=== PATIENT | female | born 1995 | race Caucasian/White ===

== ENCOUNTER 2020-11-02 05:12 | Outpatient (CLI) | payer MEDICAID, SELFPAY ==
[2020-11-02 12:32] LABS: Abs Immature Grans 0.04 10^3/uL (0.0-0.06); Absolute Basophil Count 0.01 10^3/uL (0.0-0.2); Absolute Eosinophil Count 0.02 10^3/uL (0.0-0.7); Absolute Lymphocyte Count 1.45 10^3/uL (1.2-3.4); Absolute Neutrophil Count 9.48 10^3/uL (1.2-6.7); Basophils % 0.1; Eosinophils % 0.2; HCT 39.9 % (36.0-46.0); HGB 14.1 g/dL (11.2-15.7); Immature Grans % 0.3; Lymphocytes % 12.3; MCH 31.6 pg (27.0-33.0); MCHC 35.3 % (32.0-36.0); MCV 89.5 fL (80-95); MPV 10.2 fL (8.0-11.0); Monocytes % 6.8; Neutrophils % 80.3; Nucleated RBC 0 %; Platelet Count 252 10^3/uL (130-400); RBC 4.46 10^6/uL (3.93-5.22); RDW 12.4 % (11.7-14.6); RDW-SD 40.7 fL
[2020-11-02 13:28] LABS: TSH (W/Ref FT4) 0.21 uIU/mL (0.36-3.74)
[2020-11-02 13:52] LABS: FREE T4 1.18 ng/dL (0.76-1.46)
[2020-11-02 15:54] LABS: *AMPHETAMINES SCREEN URINE Negative (Negative); *BARBITURATES SCREEN URINE Negative (Negative); *BENZODIAZEPINES SCREEN URINE Negative (Negative); Cannabinoids THC Negative (Negative); Cocaine Screen,Urine Negative (Negative); METHADONE URINE SCREEN Negative (Negative); OPIATES URINE SCREEN Negative (Negative)
[2020-11-02 16:04] LABS: Tricyclic Antidepressants Negative (Negative)
[2020-11-03 09:28] LABS: Hepatitis B Surface Ag Negative (Negative)
[2020-11-03 09:47] LABS: Varicella IgG Antibody Positive (See Note)
[2020-11-03 09:51] LABS: Rubella IgG Ab (UVM) Positive (See Note)
[2020-11-03 09:56] LABS: Hepatitis C Ab w Rflx HCV PCR Negative (Negative)
[2020-11-03 10:20] LABS: HIV-1/2 Ag & Ab Screen Negative (Negative)
[2020-11-03 13:59] LABS: Syphilis Total Ab w/Reflex Nonreactive (Nonreactive)
[2020-11-03 14:06] LABS: Chlamydia Result Negative (Negative); GC Result Negative (Negative)
[2020-11-07 12:24] LABS: Buprenorphine Negative; Norbuprenorphine Negative
== END 2020-11-02 05:32 ==
PROVIDERS: Visit Provider Advanced Practice Midwife
DX: Z34.91 Encounter for supervision of normal pregnancy, unspecified, first trimester (principal); Z11.59 Encounter for screening for other viral diseases; Z11.4 Encounter for screening for human immunodeficiency virus [HIV]; Z01.84 Encounter for antibody response examination; Z11.3 Encounter for screening for infections with a predominantly sexual mode of transmission
CPT/HCPCS: 36415; 80307; 86787; 86803; 86850; 86900; 86901; 87340; 87389; 87491; 87591; 84439; 84443; 85025; 86762; 86780; 87086

== ENCOUNTER 2020-12-28 00:33 | Outpatient (CLI) | payer MEDICAID, SELFPAY ==
--- NOTE | 2020-12-28 06:45 | DI.US_ITS ---
EXAM: US OB 2-3 TRIMESTER CLINICAL HISTORY: Anatomy,Z34.90. TECHNIQUE: Transabdominal obstetrical ultrasound performed. COMPARISON: No exams were available for comparison FINDINGS: Transabdominal obstetrical ultrasound performed. FINDINGS: Number of fetuses: One. position: Vertex. heart rate: 145 bpm. Placental location: Posterior. No evidence of previa. The placenta is low-lying. The placental tip lies 2.6 cm from the internal os. Amniotic fluid index: Amount of fluid is within normal limits. ANATOMICAL SURVEY: Within normal limits. BIOMETRIC DATA: BPD: 4.5cm equals 19 weeks 4 days HC: 16.1cm equals 18 weeks 6 days AC: 13.4cm equals 18 weeks 6 days FL: 2.8cm equals 18 weeks 4 days Cisterna Magna: 2.5 mm Cerebellum: 1.8 cm EFW: 257 grms 67% Composite Age: 19 weeks EDC by US: 05/24/2021 Heart Rate: 145BPM IMPRESSION: 1. Single live intrauterine gestation as above. 2. Low-lying placenta. 3. Normal anatomic survey. DATA REPOSITORY:
== END 2020-12-28 00:34 | disposition home or self-care (01) ==
LOC: DI 00:33
PROVIDERS: PCP Internal Medicine; Visit Provider Obstetrics & Gynecology
DX: O44.42 Low lying placenta NOS or without hemorrhage, second trimester (principal)
CPT/HCPCS: 76805

== ENCOUNTER 2021-01-29 01:25 | Outpatient (CLI) | payer MEDICAID, SELFPAY ==
--- NOTE | 2021-01-29 07:00 | DI.US_ITS ---
EXAM: US OB F/U FACIAL/LVOT/RVOT CLINICAL HISTORY: F/U PLACENTA LOCATION,O44.42. COMPARISON: US US OB 2-3 TRIMESTER from 12/28/2020 TECHNIQUE: Transabdominal obstetrical ultrasound performed. FINDINGS: Sonographic images demonstrate a single intrauterine gestation in breech position.. Placenta: Fundal and left-sided. Placental tip measures 8.5 cm from the internal os. Estimated date of delivery based upon LMP: 29 May 2021 heart rate motion is Dopplered at: 143 bpm. . Amniotic fluid: Amount of fluid is visually within normal limits. IMPRESSION: No evidence of low lying placenta.. DATA REPOSITORY:
== END 2021-01-29 01:45 ==
PROVIDERS: PCP Internal Medicine; Visit Provider Obstetrics & Gynecology
DX: O44.42 Low lying placenta NOS or without hemorrhage, second trimester (principal)
CPT/HCPCS: 76815

== ENCOUNTER 2021-02-27 04:07 | Outpatient (CLI) | payer MEDICAID, SELFPAY ==
[2021-02-27 11:15] LABS: Abs Immature Grans 0.05 10^3/uL (0.0-0.06); Absolute Basophil Count 0.01 10^3/uL (0.0-0.2); Absolute Eosinophil Count 0.03 10^3/uL (0.0-0.7); Absolute Lymphocyte Count 1.16 10^3/uL (1.2-3.4); Absolute Monocyte Count 0.62 10^3/uL (0.1-0.8); Basophils % 0.1; Eosinophils % 0.3; HCT 34.4 % (36.0-46.0); HGB 12.1 g/dL (11.2-15.7); Immature Grans % 0.5; Lymphocytes % 10.6; MCH 33.4 pg (27.0-33.0); MCHC 35.2 % (32.0-36.0); MPV 9.7 fL (8.0-11.0); Monocytes % 5.7; Neutrophils % 82.8; Nucleated RBC 0 %; Platelet Count 231 10^3/uL (130-400); RBC 3.62 10^6/uL (3.93-5.22); RDW 13.5 % (11.7-14.6); RDW-SD 47.4 fL; WBC 10.94 10^3/uL (4.4-10.8)
[2021-02-27 11:18] LABS: Absolute Neutrophil Count 9.06 10^3/uL (1.2-6.7)
[2021-02-27 11:23] LABS: Glucose,1 Hr (Glucola) 102 mg/dL (80-140)
== END 2021-02-27 04:08 | disposition home or self-care (01) ==
LOC: LBO 04:07
PROVIDERS: PCP Internal Medicine; Visit Provider Obstetrics & Gynecology Gynecology
DX: O36.0120 Maternal care for anti-D [Rh] antibodies, second trimester, not applicable or unspecified (principal); Z01.84 Encounter for antibody response examination; Z3A.27 27 weeks gestation of pregnancy
CPT/HCPCS: 36415; 82950; 86850; 90384; 85025

== ENCOUNTER 2021-04-24 18:07 | Outpatient (REF) | payer MEDICAID, SELFPAY ==
[2021-04-24 16:22] LABS: *AMPHETAMINES SCREEN URINE Negative (Negative); *BARBITURATES SCREEN URINE Negative (Negative); *BENZODIAZEPINES SCREEN URINE Negative (Negative); Cannabinoids THC Negative (Negative); Cocaine Screen,Urine Negative (Negative); METHADONE URINE SCREEN Negative (Negative); OPIATES URINE SCREEN Negative (Negative)
[2021-04-24 16:23] LABS: Tricyclic Antidepressants Negative (Negative)
[2021-04-27 14:10] LABS: Buprenorphine Negative ng/mL (Cutoff: 5.0); Norbuprenorphine Negative ng/mL (Cutoff: 2.5)
== END 2021-04-24 18:08 | disposition home or self-care (01) ==
LOC: LBN 18:07
PROVIDERS: Visit Provider Obstetrics & Gynecology Gynecology
DX: Z34.93 Encounter for supervision of normal pregnancy, unspecified, third trimester (principal); Z36.85 Encounter for antenatal screening for Streptococcus B; Z3A.35 35 weeks gestation of pregnancy
CPT/HCPCS: 80307; 87081

== ENCOUNTER 2021-05-29 07:30 | Outpatient (CLI) | payer MEDICAID, SELFPAY ==
[2021-05-29 11:17] VITALS: BP 117/76; PULSE 92; TEMP 37.4
--- NOTE | 2021-05-30 10:53 | W.OBNST ---
Date of service: 05/30/21 Time of Service: 10:54 NST Evaluation Reason for NST Reasons for Nonstress Test: POSTDATES Gestational Age Gestational Age in Weeks and Days: 40 Weeks and 0Days Test and Monitor Explained Test/Monitor Explained: Test Explained and Monitor Explained Vital Signs Blood Pressure: 117/76 Pulse: 92 Temperature: 99.3 F NST Information Date on Monitor: 05/29/21 Time on Monitor: 11:19 Date off Monitor: 05/29/21 NST Interventions: PO Hydration NST Evaluation Patient States Movement: Present FHR Baseline: 1,351 Variability: Moderate 6-25 bpm Accelerations: 15x15 Decelerations: None NST Results: Reactive Note NST Note Note: Reactive category 1 strip for postdates NST Reviewed and Verified by: Lee Ann Vieira
[2021-05-30 10:54] VITALS: BP 117/76; PULSE 92; TEMP 37.4
== END 2021-05-29 12:20 | disposition home or self-care (01) ==
LOC: BCD 07:32 → NUR 11:13
PROVIDERS: Visit Provider Obstetrics & Gynecology
DX: O48.0 Post-term pregnancy (principal); Z3A.40 40 weeks gestation of pregnancy
CPT/HCPCS: 59025

== ENCOUNTER 2021-06-01 08:06 | Outpatient (CLI) | payer MEDICAID, SELFPAY ==
[2021-06-01 13:23] VITALS: BP 137/82; PULSE 90; TEMP 36.5
[2021-06-01 13:25] VITALS: BP 137/82; PULSE 90
[2021-06-04 09:58] VITALS: BP 137/82; PULSE 90; TEMP 36.5
--- NOTE | 2021-06-04 09:58 | W.OBNST ---
Date of service: 06/04/21 Time of Service: 09:58 NST Evaluation Reason for NST Reasons for Nonstress Test: POSTDATES Gestational Age Gestational Age in Weeks and Days: 40 Weeks and 3Days Test and Monitor Explained Test/Monitor Explained: Test Explained, Monitor Explained and Patient Verbalized Understanding Vital Signs Blood Pressure: 137/82 Pulse: 90 Temperature: 97.7 F Urine Results Urine Protein: Negative Urine Ketones: Negative Urine Glucose: Negative Urine Blood: Positive NST Information Date on Monitor: 06/01/21 Time on Monitor: 13:26 Date off Monitor: 06/01/21 Time off Monitor: 14:00 Total Time on Monitor: 34 NST Interventions: PO Hydration Contraction Frequency: 2-4 min; NST Evaluation Patient States Movement: Present FHR Baseline: 135 Variability: Moderate 6-25 bpm Accelerations: 15x15 Decelerations: None NST Results: Reactive Note NST Note Note: Patient will return in approximately 2 hours to assess cervical change. NST Reviewed and Verified by: Debora Mejia
== END 2021-06-01 14:10 | disposition home or self-care (01) ==
LOC: BCD 08:10 → OBS 13:16
PROVIDERS: Visit Provider Obstetrics & Gynecology Gynecology
DX: O48.0 Post-term pregnancy (principal); Z3A.40 40 weeks gestation of pregnancy
CPT/HCPCS: 59025

== ENCOUNTER 2021-06-01 16:00 | Inpatient (IN) | payer MEDICAID, SELFPAY ==
[2021-06-01 16:11] VITALS: BP 145/81; PULSE 107; RESP 19; TEMP 37.1; O2SAT 97
--- NOTE | 2021-06-01 16:42 | HPE_ITS ---
Date of service: 06/01/21 Time of Service: 16:54 Assessment and Plan Assessment and plan (1) Rh negative status during : Status: Acute Assessment and plan: Patient had RhoGam during her Qualifiers: Trimester: third trimester Qualified Code(s): O26.893 - Other specified related conditions, third trimester; Z67.91 - Unspecified blood type, Rh negative (2) Positive GBS test: Status: Acute Assessment and plan: We will begin penicillin dosing prior to AROM (3) Active labor at term: Status: Acute Assessment and plan: Appreciable cervical change since her last visit. More uncomfortable. Will admit to the center and begin labor protocol OB-HPI Labor/Delivery History of Present Illness Chief Complaint: Uterine Contractions; Suspected Labor. NEREYDA Calculator Estimated Delivery Date Method Current WG Current Estimate 05/27/21 Ultrasound #1 40w 5d Other Estimates 05/29/21 LMP (Certain) 40w 3d History of Present Expected Delivery Route/Plan FOB/ - Kalyan Rivera md care. Specific Issues/Plan 1. Pt will check if sister had Pre-eclampsia @ iob thus she will glean info and call estrada. al 2. Rh neg, RhoGam @ 28 wks ___02/27/2021- given___ Patient and her to had Covid vaccine. - 35w transverse lie. Head maternal L. 36w Vertex. - GBS +. Pt aware. Review of Systems Narrative: Patient evaluated approximately 2 hours ago on center having strong but irregular contractions. She was instructed to ambulate for 2 hours and return for a repeat sterile vaginal exam. Her cervix has changed and she is more uncomfortable with contractions every 3 to 4 minutes. She will be admitted begin GBS prophylaxis and a vaginal . All systems reviewed & are unremarkable except as noted in HPI and below Constitutional Constitutional: Reports difficulty sleeping and Reports weight gain (Normal for ) Cardiovascular Cardiovascular: Reports system reviewed and no additional complaints, except as documented Respiratory Respiratory: Reports other (Patient reports recent rhinorrhea and sinus fullness. No fever.) Gastrointestinal Gastrointestinal: Denies change in bowel habits Genitourinary Genitourinary: Reports other (Increased vaginal discharge but no spontaneous rupture of membrane) Psychiatric Psychiatric: Reports system reviewed and no additional complaints, except as documented [facility] Medical History (Updated 06/01/21 @ 16:52 by Debora Mejia MD) Low lying placenta nos or without hemorrhage, second trimester Positive GBS test Rh negative status during Surgical History (Updated 11/02/20 @ 11:00 by Javier Brown CNM) S/P appendectomy S/P wisdom tooth extraction Family History (Updated 11/02/20 @ 11:06 by Javier Brown CNM) Father Well adult Mother Well adult Maternal Grandfather Cancer lymphoma ? if hodgkins vs non-hodgkins. al Maternal Grandmother H/O abdominal hysterectomy H/O cardiac pacemaker Paternal Grandmother Hx of halfway use of blood thinners Palsy, Wilkinson's Social History Smoking risk assessment performed?: No History History 2 Para 0 Hx # Term Pregnancies 0 Multiple births 0 Hx # Pregnancies 0 Ectopic pregnancies 0 AB induced 0 Hx Number of Living Children 0 AB spontaneous 1 Meds Allergies and Home Medications Allergies Allergy/AdvReac Type Severity Reaction Status Date / Time No Known Allergies Allergy Verified 05/21/21 14:44 Home Medications Medication Instructions Recorded Confirmed Type prenat.vits,aftab,pug-yggk-mmels 1 tab PO DAILY 05/03/20 01/30/21 History Exam Physical Exam Vital Signs Reviewed: Yes Constitutional Constitutional: no acute distress (Breathing through contractions) Detailed Labor and Delivery Exam Dilation: 2 Effacement (%): 90 station: 0 Cervix position: mid Consistency: soft Potts Score: Cervical Points Exam 0 1 2 3 Dilation Closed 1-2cm 3-4 cm 5-6cm Effacement 0-30% 40-50% 60-70% 80% Consistency Firm Medium Soft Station -3 -2 -1,0 +1,+2 Position Posterior Mid Anterior POTTS Score(Cervical Ripeness Score): 10 Amniotic Membrane Status: Intact Monitor Mode: External Contraction Frequency(min): 2-3 Contraction Duration(sec): 60 Contraction Intensity: Moderate/Strong (Palpated at bedside) Fetus A Heart Rate Baseline: 140 Monitor Accelerations: Present Monitor Decelerations: None Variability: Moderate (6-25 BPM) Presentation: Cephalic Categories: Category I Est. Weight: 3600 lb HEENT Exam HEENT Exam: Normal Neck Exam Neck Exam: Normal Chest/Brest/Axilla Exam Chest Exam: Not Done Breast Exam Breast Exam: Not Done Respiratory Exam Respiratory Exam: Normal Cardiovascular Exam Cardiovascular Exam: Normal Abdominal Exam Abdominal Exam: Normal Rectal Exam Rectal Exam: Not Done Exam Exam: Not Done Extremities Exam Extremities Exam: Normal Back/Spine/Pelvis Exam Back Exam: Normal Pelvis Adequate: Yes Skin Exam Skin Exam: Normal (Acne vulgaris on face) Neurological Exam Neurological Exam: Normal (1+ DTRs patellar) Psychiatric Exam Psychiatric Exam: Normal Results Results Group Beta Strep: Positive Risk Assessment Risk for Shoulder Dystocia Historical/Initial OB: NEGATIVE FOR: Pelvic Abnormality, Pre- BMI>30, Previous Shoulder Dystocia or Previous Macrosomia Counselin11/02/20 @ iob low risk al Risk for Pre-Eclampsia Date Initiated/Initials: 11/02/20a see note above al Yes, if one or more: NEGATIVE FOR: Hx Pre-E/Gest HTN, Chronic HTN, Multiple Gestation, Pre-gestational DM, Renal Disease, Systemic Lupus or APA Syndrome Yes, if 2 or more: POSITIVE FOR: Nulliparity; NEGATIVE FOR: Age>= 35 yrs, >10yr btwn pregnancies, BMI>30, ethinicty, Mother/Sister w/ Pre-E or Previous IUGR Risk for Post- Hemorrhage Initial: NEGATIVE FOR: Multiple Gestation, Previous PPH, Known Clotting Deficiency, Grand Multiparity or Anticoagulation Risks Reviewed Risks Reviewed Upon Admission: Yes
[2021-06-01 17:07] LABS: HCT 38.2 % (36.0-46.0); MPV 10.3 fL (8.0-11.0); Platelet Count 192 10^3/uL (130-400); RBC 3.94 10^6/uL (3.93-5.22); RDW 13.3 % (11.7-14.6); RDW-SD 47.8 fL; WBC 15.33 10^3/uL (4.4-10.8)
[2021-06-01] MEDS: Normal Saline Flush 10 ML SYR IVP ×2 (17:57→22:31)
[2021-06-01] MEDS: Lactated Ringers 1,000 ML 125 ML IV (17:58)
[2021-06-01] MEDS: Penicillin G POT. 5,000,000 UNITS in Normal Saline 100 ML 200 UNITS IVPB (17:59)
[2021-06-01 18:02] VITALS: BP 132/87; PULSE 93; TEMP 36.5
[2021-06-01 18:03] VITALS: BP 132/87; PULSE 93
[2021-06-01 19:44] LABS: Source Nasal/Nares
[2021-06-01 20:41] LABS: COVID-19 PCR Negative (Negative)
[2021-06-01 20:54] VITALS: BP 132/80; PULSE 90; RESP 16; O2SAT 93
--- NOTE | 2021-06-01 21:22 | NUR.NOTE ---
Nursing Note: Heavy meconium fluid on AROM, OB and RN plan to keep pt on continuous EFM at this time.
--- NOTE | 2021-06-01 21:22 | W.PM.OBNL1 ---
Date of service: 06/01/21 Time of Service: 21:22 Pelvic Exam Dilation: 4 Effacement (%): 90 station: 0 Position: OA Cervix Position: mid Consistency: soft Vaginal Exam Presentation: Cephalic Contractions Monitor Mode: Palpation Contraction Frequency(min): 2-4 Contraction Duration(sec): 45 Intensity: Moderate/Strong Fetus A Monitor: Doppler (Prior to AROM. After AROM continuous heart rate monitoring.) Heart Rate Baseline: 140 Presentation: Cephalic Variability: Moderate (6-25 BPM) Categories: Category I FHR Rhythm: Regular Characteristics: Normal Accelerations: Present Decelerations: None and Early (Dissociation with contractions) Recurrence: Intermittent Amniotic Membrane Status: Ruptured (AROM) Amniotic Fluid: Meconium (Thick meconium) Date of Membrane Rupture: 06/01/21 Time of Membrane Rupture: 21:26 Assessment and Plan Assessment and plan (1) Active labor at term: Status: Acute Assessment and plan: Patient feeling moreuncomfortable but tolerating the contractions well with the support of her . (2) Positive GBS test: Status: Acute Assessment and plan: Initial dose of penicillin administered will continue GBS penicillin protocol (3) Meconium in amniotic fluid: Status: Acute Assessment and plan: Will begin continuous heart rate monitoring Objective Abnormal lab results 06/01/21 Range/Units 16:50 WBC 15.33 H (4.4-10.8) 10^3/uL MCV 97.0 H (80-95) fL Temp Pulse Resp BP Pulse Ox 97.7 F 90 16 132/80 93 06/01/21 18:02 06/01/21 20:54 06/01/21 20:54 06/01/21 20:54 06/01/21 20:54 Laboratory Results WBC 15.33 10^3/uL (4.4-10.8) H 06/01/21 16:50 RBC 3.94 10^6/uL (3.93-5.22) 06/01/21 16:50 Hgb 13.0 g/dL (11.2-15.7) 06/01/21 16:50 Hct 38.2 % (36.0-46.0) 06/01/21 16:50 MCV 97.0 fL (80-95) H 06/01/21 16:50 MCH 33.0 pg (27.0-33.0) 06/01/21 16:50 MCHC 34.0 % (32.0-36.0) 06/01/21 16:50 RDW 13.3 % (11.7-14.6) 06/01/21 16:50 Plt Count 192 10^3/uL (130-400) 06/01/21 16:50 MPV 10.3 fL (8.0-11.0) 06/01/21 16:50 COVID-19 Source Nasal/Nares 06/01/21 18:15 SARS-CoV-2 (PCR) Negative (Negative) 06/01/21 18:15 Patient ABO/Rh A Negative 06/01/21 16:50 Antibody Screen NEGATIVE 06/01/21 16:50 Vital Signs Reviewed: Yes Objective Narrative Objective Narrative: After AROM patient was placed on continuous monitoring. Subjective Interval history since last seen: Contractions have become more intense and approximately every 2 minutes. She reports feeling tired. Observed her through several contractions and she tolerates contractions very well. Since her admission she has received 1 dose of penicillin for GBS prophylaxis. Results Hemoglobin/Hematocrit: Hgb 13.0 g/dL (11.2-15.7) 06/01/21 16:50 Hct 38.2 % (36.0-46.0) 06/01/21 16:50 Abnormal Lab Findings: Abnormal Labs 06/01/21 16:50 WBC 15.33 H MCV 97.0 H
[2021-06-01] MEDS: Penicillin G POT. 3,000,000 UNITS in Normal Saline 50 ML 100 UNITS IVPB (22:31)
[2021-06-01 22:38] VITALS: BP 131/81; PULSE 77; RESP 16; TEMP 36.9; O2SAT 96
[2021-06-02] VITALS (59 sets, daily range): BP systolic 111–136; BP diastolic 57–84; PULSE 65–151; RESP 16; TEMP 36.8–37.3; O2SAT 96–100; BMI 30.5
--- NOTE | 2021-06-02 00:30 | W.PM.OBNL1 ---
Date of service: 06/02/21 Time of Service: 00:31 Pelvic Exam Dilation: 4 Effacement (%): 90 station: +2 (Molding present, no caput) Cervix Position: mid Consistency: soft Vaginal Exam Presentation: Cephalic Contractions Monitor Mode: External Contraction Frequency(min): Coupling present Contraction Duration(sec): 40 seconds Intensity: Moderate/Strong Fetus A Monitor: External (US) Heart Rate Baseline: 140 Presentation: Cephalic Variability: Moderate (6-25 BPM) Categories: Category I FHR Rhythm: Regular Characteristics: Normal Accelerations: 15 X 15 Decelerations: Early Recurrence: Recurrent (With each contraction) Amniotic Membrane Status: Ruptured Assessment and Plan Assessment and plan (1) Meconium in amniotic fluid: Status: Acute (2) Active labor at term: Status: Acute Assessment and plan: Cervical changes present. Contractions better tolerated using nitrous oxide. No plan for augmentation at this time. heart rate pattern remains reassuring (3) Positive GBS test: Status: Acute Objective Abnormal lab results 06/01/21 Range/Units 16:50 WBC 15.33 H (4.4-10.8) 10^3/uL MCV 97.0 H (80-95) fL Temp Pulse Resp BP Pulse Ox 98.4 F 65 16 132/67 96 06/02/21 00:28 06/02/21 00:28 06/01/21 22:38 06/02/21 00:28 06/02/21 00:28 Laboratory Results WBC 15.33 10^3/uL (4.4-10.8) H 06/01/21 16:50 RBC 3.94 10^6/uL (3.93-5.22) 06/01/21 16:50 Hgb 13.0 g/dL (11.2-15.7) 06/01/21 16:50 Hct 38.2 % (36.0-46.0) 06/01/21 16:50 MCV 97.0 fL (80-95) H 06/01/21 16:50 MCH 33.0 pg (27.0-33.0) 06/01/21 16:50 MCHC 34.0 % (32.0-36.0) 06/01/21 16:50 RDW 13.3 % (11.7-14.6) 06/01/21 16:50 Plt Count 192 10^3/uL (130-400) 06/01/21 16:50 MPV 10.3 fL (8.0-11.0) 06/01/21 16:50 COVID-19 Source Nasal/Nares 06/01/21 18:15 SARS-CoV-2 (PCR) Negative (Negative) 06/01/21 18:15 Patient ABO/Rh A Negative 06/01/21 16:50 Antibody Screen NEGATIVE 06/01/21 16:50 Subjective Interval history since last seen: Back pain persists. Tolerating contractions, using nitrous oxide effectively. Interventions Pain Management Interventions: Nitrous Oxide (Patient excepting nitrous oxide with excellent results.) , Nitrous oxide initiated approximately 0015 with satisfactory results . Results Hemoglobin/Hematocrit: Hgb 13.0 g/dL (11.2-15.7) 06/01/21 16:50 Hct 38.2 % (36.0-46.0) 06/01/21 16:50 Abnormal Lab Findings: Abnormal Labs 06/01/21 16:50 WBC 15.33 H MCV 97.0 H
--- NOTE | 2021-06-02 00:33 | NUR.NOTE ---
Nursing Note: Semi fowlers with knees bent and out to sides resting on pillows.
[2021-06-02] MEDS: Lactated Ringers 500 ML IV (01:40)
--- NOTE | 2021-06-02 01:46 | W.PM.OBNL1 ---
Date of service: 06/02/21 Time of Service: 01:46 Informed Consent Informed Consent: Regional Anesthesia (I recommended a epidural for pt. Nitrous less effective) Pelvic Exam Dilation: 5 Effacement (%): 90 (cervix at 12 o'clock puffy.) station: +2 (with moulding. No caput) Position: OP Cervix Position: mid Consistency: soft Vaginal Exam Presentation: Cephalic Contractions Monitor Mode: Internal (IUPC placed.) Contraction Frequency(min): 2 Contraction Duration(sec): 60sec Intensity: Strong IUPC resting tone (mmHg): 20 IUPC peak pressure (mmHg): 80 Fetus A Monitor: Internal (FSE) Presentation: Cephalic Variability: Moderate (6-25 BPM) Categories: Category I FHR Rhythm: Regular Characteristics: Normal Accelerations: 15 X 15 Decelerations: Early Recurrence: Recurrent Amniotic Membrane Status: Ruptured Assessment and Plan Assessment and plan (1) Active labor at term: Status: Acute Assessment and plan: I have spoken to pt and her and recommended epidural for labor analgesia. LASTING ROOM MACHINE OPERATOR notified. IV fluids restarted. (2) Meconium in amniotic fluid: Status: Acute Assessment and plan: status remains reassuring. Objective Abnormal lab results 06/01/21 Range/Units 16:50 WBC 15.33 H (4.4-10.8) 10^3/uL MCV 97.0 H (80-95) fL Temp Pulse Resp BP Pulse Ox 98.4 F 65 16 132/67 96 06/02/21 00:28 06/02/21 00:28 06/01/21 22:38 06/02/21 00:28 06/02/21 00:28 Laboratory Results WBC 15.33 10^3/uL (4.4-10.8) H 06/01/21 16:50 RBC 3.94 10^6/uL (3.93-5.22) 06/01/21 16:50 Hgb 13.0 g/dL (11.2-15.7) 06/01/21 16:50 Hct 38.2 % (36.0-46.0) 06/01/21 16:50 MCV 97.0 fL (80-95) H 06/01/21 16:50 MCH 33.0 pg (27.0-33.0) 06/01/21 16:50 MCHC 34.0 % (32.0-36.0) 06/01/21 16:50 RDW 13.3 % (11.7-14.6) 06/01/21 16:50 Plt Count 192 10^3/uL (130-400) 06/01/21 16:50 MPV 10.3 fL (8.0-11.0) 06/01/21 16:50 COVID-19 Source Nasal/Nares 06/01/21 18:15 SARS-CoV-2 (PCR) Negative (Negative) 06/01/21 18:15 Patient ABO/Rh A Negative 06/01/21 16:50 Antibody Screen NEGATIVE 06/01/21 16:50 Subjective Interval history since last seen: Continues with back pain, burning. Continues to use nitrous oxide. Interventions Pain Management Interventions: Epidural (anesthesia provider paged.) . Results Hemoglobin/Hematocrit: Hgb 13.0 g/dL (11.2-15.7) 06/01/21 16:50 Hct 38.2 % (36.0-46.0) 06/01/21 16:50 Abnormal Lab Findings: Abnormal Labs 06/01/21 16:50 WBC 15.33 H MCV 97.0 H Procedure Procedures: Scalp Electrode Placement (placed without difficulty) , indication for electrode: baseline change / IUPC Insertion (placed without difficulty) , indication for IUPC: assessment of strength of contractions.
[2021-06-02] MEDS: Lactated Ringers 1,000 ML 125 ML IV (02:10)
[2021-06-02] MEDS: FentaNYL/ROPIvacaine 2 mcg/ml and 0.1% 200 ML CADD Cassette EP (02:42)
--- NOTE | 2021-06-02 02:46 | W.ANESNEU ---
Epidural/Spinal Catheter Date Performed: 06/02/21 Procedure Start: 02:12 Procedure Stop: 02:47 Requesting Provider: Debora Mejia Procedure Location: Obstetrics Reason Performed: Labor Epidural Standard Monitors Applied: Blood Pressure, SpO2 and See EMR for corresponding vital signs Patient Position: Sitting Sedation Given (Indicate Dose Given): No Sedation given Patient Mental Status: Awake Sterility: Surgical Cap, Surgical Mask, Sterile Gloves and Chlorhexidine Procedure Location: L4-L5 Interspace Epidural Needle: Tuohy 18 Gauge Needle Length: 3.5 Inch Needle Approach: Midline Epidural Procedure: Skin Prepped, Sterile Drape Placed, 1% Lidocaine to skin and subcutaneous tissue with 25G needle, Tuohy Needle placed, PRIYANKA to Saline Used, Epidural Catheter Placed, Negative Heme, Negative CSF Flow and Tuohy Needle Removed Catheter Placed?: Catheter Placed Test Dose (Indicate Dose Given): 3ml 1.5% Lidocaine with 1:200K Epinephrine Given and Negative Test Dose Loss of Resistance Depth (cm): 7 Catheter depth at skin (cm): 13 Dressing: Sorbaview Dressing Placed, Mastisol Used and Dressing reinforced with Tape Epidural Provider Bolus (Indicate Dose Given): Total bolus dose given in 3-5 ml divided doses and Total Ropivacaine 0.1% with Fentanyl 2mcg/ml Given from pump (ml) Dose:: 10 ml Additives (Indicate Dose Given ): None Infusion Medication: Medication Infusion Began Medication Infusion: Ropivacaine 0.1% with Fentanyl 2mcg/ml Maintenance Infusion Rate (ml/hour): 10 PCEA Bolus Dose (ml): 5 Post Procedure Pain score (0-10): 2 Block Level: N/A Paresthesia: None Ultrasound: Not Used Number of Attempts (See previous attempts in note section): 2 Procedure Tolerated: No Complications and Patient tolerated well Procedure Outcome: Successful Procedure Comment:: First attempt one space higher with bone contact. Moved lower with good success. Pt. with bilateral relief and 5/5 motor strength after pump bolus. Educated on PCEA use. Performed By: Tam Jones
[2021-06-02] MEDS: Penicillin G POT. 3,000,000 UNITS in Normal Saline 50 ML 100 UNITS IVPB ×2 (03:03→07:09)
--- NOTE | 2021-06-02 03:07 | ANES.PREOP_ITS ---
General Info Date of Service Date Performed: 06/02/21 Height: 5 ft 6.14 in Weight: 86.183 kg Body Mass Index (BMI): 30.5 Meds Allergies and Home Medications Allergies Allergy/AdvReac Type Severity Reaction Status Date / Time No Known Allergies Allergy Verified 05/21/21 14:44 Home Medication Medication Instructions Recorded prenat.vits,aftab,grw-eeze-szcjj 1 tab PO DAILY 05/03/20 Current Visit Medications: Current Medications Generic Name Dose Route Start Last Admin Trade Name Freq PRN Reason Stop Dose Admin Sodium Chloride 500 mls @ 0 mls/hr 06/01/21 16:39 Saline 500ml Bag IV PRN PRN As Directed Ringer's Solution 1,000 mls @ 125 mls/hr 06/01/21 16:45 06/01/21 17:58 IV 125 mls/hr INFUSION TRACY Administration Penicillin G Potassium 3,000, 50 mls @ 100 mls/hr 06/01/21 22:00 06/02/21 03:03 000 units/ Sodium Chloride IVPB 100 mls/hr Q4H TRACY Administration IV Miscellaneous Supplies 1 each 06/01/21 16:45 Iv Access IV DIRECTED TRACY Sodium Chloride 0 ml 06/01/21 16:39 06/01/21 22:31 Normal Saline Flush 10 Ml Syr IVP 10 ml PRN PRN Administration PFSH Active Problems Active Problems: Problem Status Onset Code Meconium in amniotic fluid P96.83 Active labor at term Positive GBS test B95.1 Rh negative status during O26.899, Z67.91 Z34.90 Positive test Z32.01 Medical History Medical History (Updated 06/01/21 @ 21:31 by Debora Mejia MD) Low lying placenta nos or without hemorrhage, second trimester Positive GBS test Rh negative status during Surgical History Surgical History (Updated 11/02/20 @ 11:00 by Javier Brown CNM) S/P appendectomy S/P wisdom tooth extraction Tobacco Smoking/Tobacco Use Status: Never Alcohol Alcohol Intake: never Substance Use Substance use: Never Substance use type: does not use Prental History History 2 Para 0 Hx # Term Pregnancies 0 Multiple births 0 Hx # Pregnancies 0 Ectopic pregnancies 0 AB induced 0 Hx Number of Living Children 0 AB spontaneous 1 Vital Signs and Lab Results Vital Signs Most Recent Vital Signs in EMR: Most Recent Vital Signs Temp Pulse Resp BP Pulse Ox 36.9 C 83 16 125/71 98 06/02/21 00:28 06/02/21 03:04 06/01/21 22:38 06/02/21 03:02 06/02/21 03:04 Lab Results Result Diagrams: 06/01/21 16:50 Blood Type / Crossmatch: 2 Patient ABO/Rh A Negative 06/01/21 16:50 06/01/21 Antibody Screen NEGATIVE 06/01/21 16:50 06/01/21 Complete Blood Count: White Blood Count 15.33 10^3/uL (4.4-10.8) H 06/01/21 16:50 06/01/21 Red Blood Count 3.94 10^6/uL (3.93-5.22) 06/01/21 16:50 06/01/21 Hemoglobin 13.0 g/dL (11.2-15.7) 06/01/21 16:50 06/01/21 Hematocrit 38.2 % (36.0-46.0) 06/01/21 16:50 06/01/21 Platelet Count 192 10^3/uL (130-400) 06/01/21 16:50 06/01/21 Complete Metabolic Panel: No Data to Display Liver Function Panel: No Data to Display Coagulation Panel: No Data to Display Cardiac Panel: No Data to Display Arterial Blood Gas: No Data to Display Venous Blood Gas: No Data to Display Pancreas Panel: No Data to Display Thyroid Panel: No Data to Display Infectious Disease: Coronavirus (COVID-19)(PCR) Negative (Negative) 06/01/21 18:15 06/01/21 Coronavirus 2019 Source Nasal/Nares 06/01/21 18:15 06/01/21 Blood Cultures: No Data to Display Toxicology Panel: No Data to Display Panel: No Data to Display Anesthesia Assessment and Plan Anesthesia History Personal History: No History of Anesthesia Complications Family History: No Family History of Anesthesia Complications Exercise Tolerance Exercise Tolerance: Metabolic Equivalents>4 Pertinent Negatives Pertinent Negatives: No Major Cardiovascular Symptoms or Complaints and No Major Pulmonary Symptoms or Complaints Cardiac & Pulmonary Exam Cardiac Exam: Normal S1/S2 Heart Sounds Pulmonary Exam: Clear Bilateral Breath Sounds Airway Exam Known Difficult Airway: No Mallampati Class: 2 Mouth Opening: Normal (> 3cm) Thyromental Distance: Greater than 3 cm Neck Range of Motion: Full ROM Neck Circumference: Normal Teeth Condition: Normal Dentition ASA Classification ASA Score: ASA 2 Emergency Case?: No NPO Status NPO Status: Full Stomach Status Status: Confirmed Anesthesia Plan Resuscitation Status: Full Code Anesthesia Technique: Epidural Anesthesia Airway Planned: Natural Airway Monitors Used: Standard Monitors
--- NOTE | 2021-06-02 03:41 | NUR.NOTE ---
Nursing Note: 06/02/[address] Quinn at bedside after epidural placement, tracing reviewed.
--- NOTE | 2021-06-02 07:15 | NUR.NOTE ---
Nursing Note:Pt voiding large amounts on the bed while pushing.
--- NOTE | 2021-06-02 07:16 | NUR.NOTE ---
Nursing Note:06/02/21 Pt voided large amount in the bed.
[2021-06-02] MEDS: Lidocaine 1% Multi-Dose 20 ML VIAL IJ (08:45)
--- NOTE | 2021-06-02 09:38 | W.OBDELIVERY ---
Date of service: 06/02/21 Time of Service: 09:38 OB Labor/ Delivery Information Providers Doctor: Debora Mejia Lifestyle Director: Tam Jones Nurse: Steph Pierre Nurse: Cat Salcedo Labor/Delivery Information Number of Babies in Womb: 1 Steroids Given: None Reason Steroids Not Administered: N/A Group Beta Strep: Positive Antibiotics Administered: Yes Number of Doses of Antibiotics: 3 Rubella Status: Immune Blood Type: A- Varicella Immunity: Immune Medication in Delivery: Lidocaine Shoulder Dystocia: No Stages of Labor Onset of Labor Date: 04/01/21 Onset of Labor Time: 02:00 Complete Dilatation Date: 06/02/21 Complete Dilatation Time: 04:39 Labor - Stage 1 Duration: 1488 hours and 0 minutes ROM Baby A: 06/01/21 ROM Baby A: 21:26 ROM Total Time- Baby A: [id number] Infant Delivery Date-Baby A: 06/02/21 Infant Delivery Time-Baby A: 08:52 Labor Stage 2 Duration: 4 hours and 13 minutes Placenta Delivery Date-Baby A: 06/02/21 Placenta Delivery Time-Baby A: 09:01 Labor-Stage 3 Duration: 9 minutes Total Length of Labor-Baby A: 1494 hours and 52 minutes Placenta Status: Delivered Baby A Gender: Female Gestational Status: Term (39-41.6 wks) Gestational Age in Weeks/Days: 40 Weeks and 4 Days Score-1 Minute Interval(Baby A) Heart Rate-1 minute: 100 BPM or Greater Respiratory Effort- 1 minute: Spontaneous/Strong Cry Muscle Tone-1 minute: Active Movement Reflex Response-1 minute: Prompt Response Color-1 minute: Bluish Hands or Feet Total Score-1 minute: 9 Score-5 Minute Interval(Baby A) Heart Rate- 5 minute: 100 BPM or Greater Respiratory Effort-5 minute: Spontaneous/Strong Cry Muscle Tone-5 minute: Active Movement Reflex Response-5 minute: Prompt Response Color-5 minute: Bluish Hands or Feet Total Score- 5 minute: 9 Procedure Procedures: Cord Blood Collection Interventions Episiotomy Indication: Other (maternal exhaustion. Unable to push against intact perineum) , Episiotomy Description: Midline Midline Degree: 2nd Degree (to allow successful of vertex) . Sponge Count Correct: No Sponges Placed in Vagina , Sharp Count Correct: Yes . Episiotomy/Repair Note: Prior to episiotomy performed site had been infiltrated with 2cc 1% Lidocaine without Epinephrine. site was reapproximated with 3-0 Vicryl in the usual fashion. Vagina inspected and no evidence of sulcus tears.
[2021-06-02] MEDS: Acetaminophen 325 MG TAB 650 MG PO ×2 (13:10→19:28)
[2021-06-02] MEDS: Ibuprofen 600 MG TAB PO ×2 (13:10→19:27)
--- NOTE | 2021-06-02 14:29 | W.ANESPOSTOP ---
Postoperative Evaluation Date, Time and Location Date Performed: 06/02/21 Time Performed: 14:29 Patient Location: Obstetrics Vital Signs Most Recent Imported Vital Signs: Most Recent Vital Signs Temp Pulse Resp BP Pulse Ox 37.1 C 101 H 16 121/75 96 06/02/21 12:43 06/02/21 13:52 06/01/21 22:38 06/02/21 13:52 06/02/21 04:44 Assessment Mental Status: Awake (Alert & Oriented to Patient Baseline) Airway and Respiratory Function: Patent airway with normal (patient baseline) respiratory exam Cardiovascular Function: Hemodynamically Stable Hydration Status: Adequately Hydrated Nausea & Vomiting: No Nausea or Vomiting Pain: Pain is tolerable per patient Peripheral Nerve Block: Patient did not receive a nerve block
[2021-06-02] MEDS: Dibucaine 1% 28 GM TUBE TP (19:28)
[2021-06-03] MEDS: Ibuprofen 600 MG TAB PO ×2 (01:24→09:32)
[2021-06-03] MEDS: Acetaminophen 325 MG TAB 650 MG PO ×2 (01:24→09:32)
[2021-06-03 01:29] VITALS: BP 123/77; PULSE 73; RESP 16
--- NOTE | 2021-06-03 05:26 | NUR.NOTE ---
Nursing Note: Pt states she had 2 BMs yesterday.
[2021-06-03 08:16] VITALS: BP 124/85; PULSE 88; RESP 14; TEMP 36.6; O2SAT 96
[2021-06-03] MEDS: Prenatal Multivitamin w/CA,FE TAB 1 TAB PO (09:33)
--- NOTE | 2021-06-03 11:17 | W.PM.OBPNV1 ---
Date of service: 06/03/21 Time of Service: 11:17 Assessment and Plan Assessment and plan (1) Spontaneous vaginal delivery: Status: Acute Assessment and plan: Will discharge home today [facility] (2) Normal course: Status: Acute Assessment and plan: Breast-feeding without significant problems. Subjective Subjective Interval history: day 1 after spontaneous vaginal delivery viable female named Karin. has breast-fed during the night and is planned for discharge today. Mother and father would like to go home today. Patient comments: No complaints, Tolerating diet and Bowel Movement (Without difficulty) Patient's Mood: Good baby status: Doing well, Nursing well, Rooming in and Strong Bonding Observed feeding status: Exclusively breast feeding Exam Physical Exam Vital signs: Temp Pulse Resp BP Pulse Ox 97.9 F 88 14 124/85 96 06/03/21 08:16 06/03/21 08:16 06/03/21 08:16 06/03/21 08:16 06/03/21 08:16 Vital Signs Reviewed: Yes Narrative: Patient was awake boarded Jorde of the night breast-feeding her . Constitutional Constitutional: no acute distress Neck Exam Neck Exam: Normal Respiratory Exam Respiratory Exam: Normal Cardiovascular Exam Cardiovascular Exam: Normal (Bilateral nonpitting lower extremity edema present) Abdominal Exam Abdomen: Other (Nontender) Fundal Exam Fundus: Below Umbilicus Rectal Exam Rectal Exam: Not Done Extremities Exam Extremity Exam: Normal, Edema and Full ROM Back/Spine/Pelvis Exam Back Exam: Not Done Skin Exam Skin Exam: Normal (PUPPs rash improving) Neurological Exam Neurological Exam: Normal Psychiatric Exam Psychiatric Exam: Normal Results Hemoglobin/Hematocrit: Hgb 13.0 g/dL (11.2-15.7) 06/01/21 16:50 Hct 38.2 % (36.0-46.0) 06/01/21 16:50 Abnormal Lab Findings: Abnormal Labs 06/01/21 16:50 WBC 15.33 H MCV 97.0 H
--- NOTE | 2021-06-03 11:22 | DSE_ITS ---
Date of service: 06/03/21 Time of Service: 11:22 DS: Diagnosis Discharge Diagnosis (1) Spontaneous vaginal delivery: Status: Acute Discharge Plan Disposition Patient Disposition: HOME Condition: Good Discharge Details Reason For Visit: Labor Admit Date/Time: 06/01/21 16:00 Admit Provider: Debora Mejia Attending Provider: Debora Mejia Primary Care Provider: Unknown,Unknown Hospital Course Hospital Course: Admitted with spontaneous labor on 06/01/2021. She went on to have a spontaneous vaginal delivery over a small midline episiotomy. She was discharged to home on day 1 successfully breast-feeding with normal physical exam. Home Meds and New Rx's Prescriptions: No Action prenat.vits,aftab,[id number] Tablet 1 tab PO DAILY RF: 0 Discharge Instructions Additional Instructions: Call the office at [phone] on 06/04/2021 to make it a post check for [address] Mejia Stand Alone Forms: BC Instructions, BC Post Vaginal Deliver Activity:: Activity as Tolerated Equipment/Supplies:: No Equipment Needed Diet:: As Tolerated Discharge Orders Discharge Orders: Discharge Order (Routine); Ordered 06/03/21 Ordered By: Debora Mejia OB:DS Summary Summary Episiotomy Description: Midline Midline Degree: 2nd Degree (to allow successful of vertex) Contraception Discussed Contraception Discussed: Yes Contraceptive Plan: Not planning to use, [place] Gender-Baby A: Female weight: 8 lb 0.926 oz Status at Discharge Functional status at discharge: independent ambulation Overall status at discharge: patient is back to baseline Mental Status: mental status grossly normal Speech and Movement: speech and movement normal Mood: congruent mood Affect: normal affect Exam Physical Exam Vital signs: Temp Pulse Resp BP Pulse Ox 97.9 F 88 14 124/85 96 06/03/21 08:16 06/03/21 08:16 06/03/21 08:16 06/03/21 08:16 06/03/21 08:16 Constitutional Constitutional: no acute distress Neck Exam Neck Exam: Normal Respiratory Exam Respiratory Exam: Normal Cardiovascular Exam Cardiovascular Exam: Normal Fundal Exam Fundus: Below Umbilicus Rectal Exam Rectal Exam: Not Done Exam Perineum: Normal External: Present normal urethra appearance Extremities Exam Extremity Exam: Normal Back/Spine/Pelvis Exam Back Exam: Not Done Skin Exam Skin Exam: Normal Neurological Exam Neurological Exam: Normal Psychiatric Exam Psychiatric Exam: Normal [facility] Medical History (Updated 06/03/21 @ 11:24 by Debora Mejia MD) Low lying placenta nos or without hemorrhage, second trimester Positive GBS test Rh negative status during Surgical History (Updated 11/02/20 @ 11:00 by Javier Brown CNM) S/P appendectomy S/P wisdom tooth extraction Family History (Updated 11/02/20 @ 11:06 by Javier Brown CNM) Father Well adult Mother Well adult Maternal Grandfather Cancer lymphoma ? if hodgkins vs non-hodgkins. al Maternal Grandmother H/O abdominal hysterectomy H/O cardiac pacemaker Paternal Grandmother Hx of tank terminal gauger use of blood thinners Palsy, Wilkinson's Social History (Updated 06/03/21 @ 11:24 by Debora Mejia MD) Smoking/Tobacco Use Status: Never Smoking risk assessment performed?: Yes Alcohol Intake: never Drug use: Never Substance use type: does not use Household members: spouse, children and other Details: Cora-Derek. Marks Number of Children: 1 History History 2 Para 1 Hx # Term Pregnancies 1 Multiple births 0 Hx # Pregnancies 0 Ectopic pregnancies 0 AB induced 0 Hx Number of Living Children 1 AB spontaneous 1 DS: Data Vitals/I&O Vitals and I&O: Vital Signs Temperature 97.9 F 06/03/21 08:16 Pulse 88 06/03/21 08:16 Pulse Rhythm Regular 06/03/21 08:12 Respiratory Rate 14 06/03/21 08:16 Respiratory Depth Normal 06/03/21 08:12 Blood Pressure 124/85 06/03/21 08:16 Blood Pressure Mean 98 06/03/21 08:16 Pulse Oximetry 96 06/03/21 08:16 Oxygen Delivery Method Room Air 06/01/21 16:11 Oxygen Flow Rate 0 06/01/21 16:11 Pain Level 2 06/03/21 01:24 Comment 06/03/21 08:16 Intake & Output 06/02/21 06/02/21 06/03/21 11:59 23:59 11:59 Intake Total 1400 / 1900 500 / 1900 Output Total 1535 / 3135 1600 / 3135 Balance -135 / -1235 -1100 / -1235 Weight 190 lb Intake: IV 1400 / 1900 500 / 1900 Output: Urine 1200 / 2800 1600 / 2800 Blood 335 / 335 Other: Urine Color Yellow Data Completed and Pending Labs on day of discharge: Labs from last 24 hours 06/03/21 06/01/21 06:50 16:50 Patient ABO/Rh A Negative Antibody Screen NEGATIVE Screen Pending Unit Expiration Date 04/19/2023 Product Lot # [id number]
== END 2021-06-03 13:30 | disposition home or self-care (01) | DRG 807 ==
PROVIDERS: Admitting Provider Obstetrics & Gynecology Gynecology; Visit Provider Obstetrics & Gynecology Gynecology
DX: O26.86 Pruritic urticarial papules and plaques of pregnancy (PUPPP) (principal); Z37.0 Single live birth; O26.893 Other specified pregnancy related conditions, third trimester; Z67.91 Unspecified blood type, Rh negative; Z3A.40 40 weeks gestation of pregnancy; O75.81 Maternal exhaustion complicating labor and delivery; O99.824 Streptococcus B carrier state complicating childbirth; O77.0 Labor and delivery complicated by meconium in amniotic fluid
CPT/HCPCS: 85027; 85461; 86850; 86900; 86901; 87635; 90384; J2540; J2790; J3490

== ENCOUNTER 2021-07-25 16:47 | Outpatient (REF) | payer MEDICAID, SELFPAY ==
--- NOTE | 2021-07-25 16:00 | PAPFT_PTH ---
PATIENT: Brea Rivera LOC: [facility] U#:[id number] AGE/SX: 25/F ROOM: RE07/25/[address]: Deobra Mejia : 1995 BED: DIS: 07/25/2021 SPEC #: [id number] RECD: 07/25/21 17:25 STATUS: SHER REQ #: [id number] KARSTEN: 07/25/21 16:[address]: Debora Mejia DEPT: [facility] Cytology RECD BY: Ritika Bills ENTERED: 07/25/21 17:26 SP TYPE: PAPFT OTHR DR: Unknown,Unknown Tissues: 1 - CX/ENDOCX FOR PAP SMEARS Procedures: PAP THIN PREP/UVM Screening Comments: [id number]
== END 2021-07-25 16:48 | disposition home or self-care (01) ==
LOC: LBN 16:47
PROVIDERS: Visit Provider Obstetrics & Gynecology Gynecology
DX: Z12.4 Encounter for screening for malignant neoplasm of cervix (principal)
CPT/HCPCS: 88142

== ENCOUNTER 2022-02-21 04:10 | Outpatient (CLI) | payer MEDICAID, SELFPAY ==
[2022-02-21 11:40] LABS: Abs Immature Grans 0.04 10^3/uL (0.0-0.06); Absolute Basophil Count 0.02 10^3/uL (0.0-0.2); Absolute Lymphocyte Count 1.94 10^3/uL (1.2-3.4); Absolute Neutrophil Count 9.61 10^3/uL (1.2-6.7); Basophils % 0.2; Eosinophils % 0.2; HCT 40.6 % (36.0-46.0); HGB 13.8 g/dL (11.2-15.7); Immature Grans % 0.3; Lymphocytes % 15.8; MCH 31.4 pg (27.0-33.0); MCV 92.5 fL (80-95); MPV 9.9 fL (8.0-11.0); Monocytes % 5.4; Neutrophils % 78.1; Nucleated RBC 0 %; Platelet Count 287 10^3/uL (130-400); RBC 4.39 10^6/uL (3.93-5.22); RDW 13.2 % (11.7-14.6); RDW-SD 44.5 fL; WBC 12.31 10^3/uL (4.4-10.8)
[2022-02-21 11:46] LABS: Absolute Eosinophil Count 0.02 10^3/uL (0.0-0.7); Absolute Monocyte Count 0.66 10^3/uL (0.1-0.8)
[2022-02-21 14:19] LABS: TSH (W/Ref FT4) 0.04 uIU/mL (0.36-3.74)
[2022-02-21 14:42] LABS: FREE T4 1.17 ng/dL (0.76-1.46)
[2022-02-22 09:52] LABS: Hepatitis B Surface Ag Negative (Negative)
[2022-02-22 10:47] LABS: Hepatitis C Ab w Rflx HCV PCR Negative (Negative)
[2022-02-22 10:48] LABS: HIV-1/2 Ag & Ab Screen Negative (Negative)
[2022-02-22 13:37] LABS: Varicella IgG Antibody Positive (See Note)
[2022-02-22 13:39] LABS: Rubella IgG Ab (UVM) Positive (See Note)
[2022-02-23 15:18] LABS: Syphilis IgG w/Reflex Nonreactive (Nonreactive)
== END 2022-02-21 04:11 | disposition home or self-care (01) ==
LOC: LBO 04:10
PROVIDERS: Visit Provider Advanced Practice Midwife
DX: Z34.91 Encounter for supervision of normal pregnancy, unspecified, first trimester
CPT/HCPCS: 36415; 86787; 86803; 86850; 86900; 86901; 87340; 87389; 84439; 84443; 85025; 86762; 86780

== ENCOUNTER 2022-02-21 17:54 | Outpatient (REF) | payer MEDICAID, SELFPAY ==
[2022-02-21 17:00] LABS: *AMPHETAMINES SCREEN URINE Negative (Negative); *BARBITURATES SCREEN URINE Negative (Negative); *BENZODIAZEPINES SCREEN URINE Negative (Negative); Cannabinoids THC Negative (Negative); Cocaine Screen,Urine Negative (Negative); METHADONE URINE SCREEN Negative (Negative); OPIATES URINE SCREEN Negative (Negative)
[2022-02-21 17:01] LABS: Tricyclic Antidepressants Negative (Negative)
[2022-02-22 15:09] LABS: Chlamydia Result Negative (Negative); GC Result Negative (Negative)
[2022-02-27 11:30] LABS: Buprenorphine Negative ng/mL (Cutoff: 5.0); Norbuprenorphine Negative ng/mL (Cutoff: 2.5)
== END 2022-02-21 17:55 | disposition home or self-care (01) ==
LOC: LBN 17:54
PROVIDERS: Visit Provider Advanced Practice Midwife
DX: Z34.91 Encounter for supervision of normal pregnancy, unspecified, first trimester (principal)
CPT/HCPCS: 80307; 87491; 87591; 87086

== ENCOUNTER → 2022-04-16 01:34 | Outpatient (CLI) | payer MEDICAID, SELFPAY ==
--- NOTE | 2022-04-16 07:45 | DI.US_ITS ---
Exam(s) US OB 2-3 TRIMESTER EXAM: US OB 2-3 TRIMESTER CLINICAL HISTORY: , Z34.90, SURVEY TECHNIQUE: Ultrasound performed using standard protocol. COMPARISON: US US OB F/U FACIAL/LVOT/RVOT from 01/29/2021 FINDINGS: Ob ultrasound was performed utilizing 2nd trimester protocol. biometry is consistent with gest ational age of 19 weeks 0 days and an EDC of September 10. Placenta is posterior and there is apparent placenta previa. Appropriate follow-up imaging recommend ed at approximately 30 weeks gestational age. anomaly screen is within normal limits. heart rate is 143 BPM. There is visually a normal quantity of amniotic fluid. IMPRESSION: Placenta previa noted in 19 week gestation. Follow-up study recommended at approximately 30 weeks ge stational age. DATA REPOSITORY:
== END ==
PROVIDERS: Visit Provider Advanced Practice Midwife
DX: Z3A.19 19 weeks gestation of pregnancy; O44.01 Complete placenta previa NOS or without hemorrhage, first trimester
CPT/HCPCS: 76805

== ENCOUNTER → 2022-07-03 01:16 | Outpatient (CLI) | payer MEDICAID, SELFPAY ==
--- NOTE | 2022-07-03 08:10 | DI.US_ITS ---
Exam(s) US OB F/U FACIAL/LVOT/RVOT EXAM: US OB F/U FACIAL/LVOT/RVOT CLINICAL HISTORY: check placental location,PREVIA,o44.0 TECHNIQUE: Ultrasound performed using standard protocol. COMPARISON: US US OB 2-3 TRIMESTER from 04/16/2022 FINDINGS: Today's examination was performed to re-evaluate placental location in an approximately 30 week gesta tion. Prior examination had shown placenta previa. The placenta previa has resolved, the placental margin inferiorly is now about 4.6 cm above the internal cervical os. heart rate was 136 BPM. IMPRESSION: Resolution of previously noted placenta previa. No previa present at this time. DATA REPOSITORY:
== END ==
PROVIDERS: Visit Provider Obstetrics & Gynecology
DX: Z34.83 Encounter for supervision of other normal pregnancy, third trimester (principal)
CPT/HCPCS: 76815

== ENCOUNTER 2022-07-03 03:20 | Outpatient (CLI) | payer MEDICAID, SELFPAY ==
[2022-07-03 14:59] LABS: Glucose,1 Hr (Glucola) 79 mg/dL (80-140)
== END 2022-07-03 03:21 | disposition home or self-care (01) ==
LOC: LBO 03:20
PROVIDERS: Visit Provider Obstetrics & Gynecology
DX: Z34.83 Encounter for supervision of other normal pregnancy, third trimester (principal)
CPT/HCPCS: 36415; 82950; 86850; 90384

== ENCOUNTER 2022-08-16 15:49 | Outpatient (REF) | payer MEDICAID, SELFPAY ==
[2022-08-16 17:21] LABS: *AMPHETAMINES SCREEN URINE Negative (Negative); *BARBITURATES SCREEN URINE Negative (Negative); *BENZODIAZEPINES SCREEN URINE Negative (Negative); Cannabinoids THC Negative (Negative); Cocaine Screen,Urine Negative (Negative); METHADONE URINE SCREEN Negative (Negative); OPIATES URINE SCREEN Negative (Negative)
[2022-08-16 17:31] LABS: Tricyclic Antidepressants Negative (Negative)
[2022-08-24 17:23] LABS: Buprenorphine Negative ng/mL (Cutoff: 5.0); Norbuprenorphine Negative ng/mL (Cutoff: 2.5)
== END 2022-08-16 15:50 | disposition home or self-care (01) ==
LOC: LBN 15:49
PROVIDERS: Visit Provider Obstetrics & Gynecology Gynecology
DX: Z34.90 Encounter for supervision of normal pregnancy, unspecified, unspecified trimester (principal)
CPT/HCPCS: 80307; 87081

== ENCOUNTER 2022-09-05 12:56 | Outpatient (CLI) | payer MEDICAID, SELFPAY | END 2022-09-05 12:57 | disposition home or self-care (01) | LOC: ORDER INT 12:58 | PROVIDERS: Visit Provider Obstetrics & Gynecology | DX: O32.0XX0 Maternal care for unstable lie, not applicable or unspecified (principal) ==

== ENCOUNTER 2022-09-07 21:27 | Inpatient (IN) | payer MEDICAID, SELFPAY ==
[2022-09-07 21:42] VITALS: BP 138/86; PULSE 83; RESP 18; TEMP 36.7
--- NOTE | 2022-09-07 21:55 | HPE_ITS ---
Date of service: 09/07/22 Time of Service: 21:55 Assessment and Plan Assessment and plan (1) Uterine contractions: Status: Acute Assessment and plan: Early active labor. Confirmed vtx presentation. Hx of unstable lie. Anticipate vaginal delivery. (2) Positive GBS test: Status: Acute Assessment and plan: begin GBS prophylaxis with PCN OB-HPI Labor/Delivery History of Present Illness Reason for Visit: Term Labor Chief Complaint: Uterine Contractions. NEREYDA Calculator Estimated Delivery Date Method Current WG Current Estimate 09/11/22 Ultrasound #1 39w 3d Other Estimates 09/04/22 LMP (Certain) 40w 3d History of Present Expected Delivery Route/Plan Patient request MD providers Jessica Rivera Specific Issues/Plan 1. syncopal episodes with palpitations, referred to her PCP in [place]. 2. Declines all serum genetic testing. 3. First trimester TSH 0.04 Free T4 1.17, 08/16/22. Not done yet. 4. Placenta Previa- repeat US in 3rd trimester - resolved 5. Rh neg. Rhogam @ 28w. 6. Transverse presentation. 08/23/22. VTX - confirmed 09/05/22 7. GBS+: ppx in labor Narrative: Pt reports contx beginning last night, intensifying during the day, and increasing in frequency. No ROM. Good movement. Pt advised to present to BC to begin GBS prophylaxis. Informed Consent Informed Consent: Other (Pt agrees to remain on BC and receive GBS prophylaxis) Review of Systems All systems reviewed & are unremarkable except as noted in HPI and below PFSH All Active Problems (Updated 09/07/22 @ 22:07 by Debora Mejia MD) Positive GBS test (Acute) Uterine contractions (Acute) (Acute) Medical History (Updated 09/07/22 @ 22:07 by Debora Mejia MD) Chronic mastitis of left breast 11/2021. Rx with extended course of Fluconazole for yeast mastitis sx. Sx improved. Placenta previa Spontaneous vaginal delivery 06/02/2021. F. Karin Surgical History (Updated 11/02/20 @ 11:00 by Javier Brown RN) S/P appendectomy S/P wisdom tooth extraction Family History (Updated 02/21/22 @ 10:24 by Jazmine Roldan CNM) Father Well adult Mother Well adult Maternal Grandfather Cancer lymphoma ? if hodgkins vs non-hodgkins. al Maternal Grandmother H/O abdominal hysterectomy H/O cardiac pacemaker Paternal Grandmother Hx of residential use of blood thinners Palsy, Wilkinson's Pulmonary embolism Social History (Updated 06/03/21 @ 11:24 by Debora Mejia MD) Smoking/Tobacco Use Status: Never Smoking risk assessment performed?: Yes Alcohol Intake: never Drug use: Never Substance use type: does not use Household members: spouse, children and other Details: H-Kalyan. D-Karin Number of Children: 1 History History 2 Para 1 Hx # Term Pregnancies 1 Multiple births 0 Hx # Pregnancies 0 Ectopic pregnancies 0 AB induced 0 Hx Number of Living Children 1 AB spontaneous 1 Past Pregnancies Del. Date GA/Weeks # Preg Succ Route Wgt Sex Labor Lgth Anesth esia Location Prov Complic 06/02/21 40 No vaginal 8 lb 0.926 oz Female 18 hours. [facility] Delivery Date: 06/02/21 Last Updated by: Debora Mejia M.D. over midline episiotomy. Epidural. Karin. Meds Allergies and Home Medications Allergies Allergy/AdvReac Type Severity Reaction Status Date / Time No Known Allergies Allergy Verified 09/05/22 12:50 Home Medications Medication Instructions Recorded Confirmed Type prenat.vits,aftab,[id number]-skbfj 1 tab PO DAILY 05/03/20 09/05/22 History Exam Physical Exam Vital signs: Temp Pulse Resp BP 98.1 F 83 18 138/86 09/07/22 21:42 09/07/22 21:42 09/07/22 21:42 09/07/22 21:42 Vital Signs Reviewed: Yes Constitutional Constitutional: no acute distress Detailed Labor and Delivery Exam Dilation: 3 Effacement (%): 25 station: -1 Position: OA Cervix position: mid Consistency: medium Potts Score: Cervical Points Exam 0 1 2 3 Dilation Closed 1-2cm 3-4 cm 5-6cm Effacement 0-30% 40-50% 60-70% 80% Consistency Firm Medium Soft Station -3 -2 -1,0 +1,+2 Position Posterior Mid Anterior POTTS Score(Cervical Ripeness Score): 5 Amniotic Membrane Status: Intact Monitor Mode: External Contraction Frequency(min): q4 Contraction Duration(sec): 60 Contraction Intensity: Mild/Moderate Fetus A Heart Rate Baseline: 140 Monitor Accelerations: 15 X 15 Monitor Decelerations: None Variability: Moderate (6-25 BPM) Presentation: Cephalic Categories: Category I Est. Weight: 7 lb 14.986 oz Neck Exam Neck Exam: Normal Chest/Brest/Axilla Exam Chest Exam: Not Done Breast Exam Breast Exam: Not Done Respiratory Exam Respiratory Exam: Normal Cardiovascular Exam Cardiovascular Exam: Normal Abdominal Exam Abdominal Exam: Normal (no focal abdominal pain) Rectal Exam Rectal Exam: Not Done Exam Exam: Normal Extremities Exam Extremities Exam: Normal Back/Spine/Pelvis Exam Pelvis Adequate: Yes Skin Exam Skin Exam: Normal Neurological Exam Neurological Exam: Normal Psychiatric Exam Psychiatric Exam: Normal Risk Assessment Risk for Shoulder Dystocia Historical/Initial OB: NEGATIVE FOR: Pelvic Abnormality, Pre- BMI>30, Previous Shoulder Dystocia or Previous Macrosomia Counselin11/02/20 @ iob low risk al Risk for Pre-Eclampsia Yes, if one or more: NEGATIVE FOR: Hx Pre-E/Gest HTN, Chronic HTN, Multiple Gestation, Pre-gestational DM, Renal Disease, Systemic Lupus or APA Syndrome Yes, if 2 or more: POSITIVE FOR: Mother/Sister w/ Pre-E; NEGATIVE FOR: Nulliparity, Age>= 35 yrs, >10yr btwn pregnancies, BMI>30, ethinicty or Previous IUGR Risk for Post- Hemorrhage Initial: NEGATIVE FOR: Multiple Gestation, Previous PPH, Known Clotting Defic iency, Grand Multiparity or Anticoagulation Risks Reviewed Risks Reviewed Upon Admission: Yes
[2022-09-07] MEDS: Penicillin G POT. 5,000,000 UNITS in Normal Saline 100 ML 200 UNITS IVPB (22:11)
[2022-09-07 22:14] LABS: HCT 36.9 % (36.0-46.0); HGB 13.1 g/dL (11.2-15.7); MCH 33.3 pg (27.0-33.0); MCHC 35.5 % (32.0-36.0); MCV 94 fL (80-95); MPV 11.1 fL (8.0-11.0); Platelet Count 206 10^3/uL (130-400); RBC 3.93 10^6/uL (3.93-5.22); RDW 13.2 % (11.7-14.6); RDW-SD 45.3 fL; WBC 12.64 10^3/uL (4.4-10.8)
[2022-09-07] MEDS: Lactated Ringers 1,000 ML 125 ML IV (22:15)
[2022-09-07 22:16] VITALS: BP 138/86; PULSE 83; RESP 18; TEMP 36.7
[2022-09-07 22:30] LABS: Source Nasal/Nares
[2022-09-07 23:00] LABS: COVID-19 PCR Negative (Negative)
[2022-09-07 23:36] VITALS: BP 123/74; PULSE 66
[2022-09-07 23:47] VITALS: BP 123/74; PULSE 66; RESP 18; TEMP 36.7
--- NOTE | 2022-09-07 23:53 | W.PM.OBNL1 ---
Date of service: 09/07/22 Time of Service: 23:53 Informed Consent Informed Consent: Other (Pt agrees to remain on BC and receive GBS prophylaxis) Assessment and Plan Assessment and plan (1) Positive GBS test: Status: Acute Assessment and plan: Continue to administer GBS prophylaxis. Will consider AROM in the morning if she has not had cervical change or SROM during the night. (2) Uterine contractions: Status: Acute Assessment and plan: Patient tolerating contractions. No plan for therapeutic rest at this time per patient request. Objective Abnormal lab results 09/07/22 Range/Units 22:02 WBC 12.64 H (4.4-10.8) 10^3/uL MCH 33.3 H (27.0-33.0) pg MPV 11.1 H (8.0-11.0) fL Temp Pulse Resp BP 98.1 F 66 18 123/74 09/07/22 23:47 09/07/22 23:47 09/07/22 23:47 09/07/22 23:47 Laboratory Results WBC 12.64 10^3/uL (4.4-10.8) H 09/07/22 22:02 RBC 3.93 10^6/uL (3.93-5.22) 09/07/22 22:02 Hgb 13.1 g/dL (11.2-15.7) 09/07/22 22:02 Hct 36.9 % (36.0-46.0) 09/07/22 22:02 MCV 94 fL (80-95) 09/07/22 22:02 MCH 33.3 pg (27.0-33.0) H 09/07/22 22:02 MCHC 35.5 % (32.0-36.0) 09/07/22 22:02 RDW 13.2 % (11.7-14.6) 09/07/22 22:02 Plt Count 206 10^3/uL (130-400) 09/07/22 22:02 MPV 11.1 fL (8.0-11.0) H 09/07/22 22:02 COVID-19 Source Nasal/Nares 09/07/22 21:52 SARS-CoV-2 (PCR) Negative (Negative) 09/07/22 21:52 Patient ABO/Rh A Negative 09/07/22 22:02 Antibody Screen POSITIVE 09/07/22: Antibody Identification Anti-D 09/07/22: Subjective Interval history since last seen: Patient admitted to the center and has received her first dose of penicillin for GBS prophylaxis. She continues to contract regularly. heart rate tracing category 1. The plan at this time is to continue to observe her. No plans for AROM at this time per patient provider discussion. Results Hemoglobin/Hematocrit: Hgb 13.1 g/dL (11.2-15.7) 09/07/22: Hct 36.9 % (36.0-46.0) 09/07/22: Abnormal Lab Findings: Abnormal Labs 09/07/22: WBC 12.64 H MCH 33.3 H MPV 11.1 H
[2022-09-08] VITALS (14 sets, daily range): BP systolic 112–138; BP diastolic 64–87; PULSE 50–80; RESP 16; TEMP 36.6–37; O2SAT 98–99
[2022-09-08] MEDS: Penicillin G POT. 3,000,000 UNITS in Normal Saline 50 ML 100 UNITS IVPB (02:13)
--- NOTE | 2022-09-08 02:20 | PGE_ITS ---
Date of service: 09/08/22 Time of Service: 02:20 Informed Consent Informed Consent: Other (Pt agrees to remain on BC and receive GBS prophylaxis) Objective Abnormal lab results 09/07/22 Range/Units 22:02 WBC 12.64 H (4.4-10.8) 10^3/uL MCH 33.3 H (27.0-33.0) pg MPV 11.1 H (8.0-11.0) fL Temp Pulse Resp BP 98.1 F 56 L 18 132/83 09/07/22 23:47 09/08/22 01:57 09/07/22 23:47 09/08/22 01:57 Laboratory Results WBC 12.64 10^3/uL (4.4-10.8) H 09/07/22 22:02 RBC 3.93 10^6/uL (3.93-5.22) 09/07/22 22:02 Hgb 13.1 g/dL (11.2-15.7) 09/07/22 22:02 Hct 36.9 % (36.0-46.0) 09/07/22 22:02 MCV 94 fL (80-95) 09/07/22 22:02 MCH 33.3 pg (27.0-33.0) H 09/07/22 22:02 MCHC 35.5 % (32.0-36.0) 09/07/22 22:02 RDW 13.2 % (11.7-14.6) 09/07/22 22:02 Plt Count 206 10^3/uL (130-400) 09/07/22 22:02 MPV 11.1 fL (8.0-11.0) H 09/07/22 22:02 COVID-19 Source Nasal/Nares 09/07/22 21:52 SARS-CoV-2 (PCR) Negative (Negative) 09/07/22 21:52 Patient ABO/Rh A Negative 09/07/22 22:02 Antibody Screen POSITIVE 09/07/22 22:02 Antibody Identification Anti-D 09/07/22 22:02 Subjective Interval history since last seen: Patient called to request a vaginal exam after feeling increased vaginal pressure measurements changed with vertex presentation 0 station 100% effaced 4- 5 cm dilation. Plan at this time is to restart continuous heart rate monitoring for an interval to assure wellbeing. Patient declines rupture membranes. She is scheduled for second dose of penicillin in the near future. Tolerating contractions well. Results Hemoglobin/Hematocrit: Hgb 13.1 g/dL (11.2-15.7) 09/07/22 22:02 Hct 36.9 % (36.0-46.0) 09/07/22 22:02 Abnormal Lab Findings: Abnormal Labs 09/07/22 22:02 WBC 12.64 H MCH 33.3 H MPV 11.1 H
[2022-09-08] MEDS: Calcium Carbonate *TUMS* 500 MG CHEW PO (03:06)
[2022-09-08] MEDS: Oxytocin/Normal Saline 30 UNIT/500 ML BAG 95 UNITS IV (05:05)
--- NOTE | 2022-09-08 05:20 | W.OBDELIVERY ---
Date of service: 09/08/22 Time of Service: 05:20 OB Labor/ Delivery Information Baby A Delivery Delivery Method: Spontaneaous Presentation: Cephalic Cephalic Position: Vertex Vertex Position: Right Occipital Anterior Cord Description-Baby A: 3 Vessels Amniotic Fluid: Clear Estimated Blood Loss: 100 Delivery Outcome: Liveborn Complications: None Transferred: Remains with Mother Providers Doctor: Debora Mejia Nurse: Maris Carroll Nurse: Paulina Felix Labor/Delivery Information Number of Babies in Womb: 1 Steroids Given: None Reason Steroids Not Administered: N/A Group Beta Strep: Positive Antibiotics Administered: Yes Number of Doses of Antibiotics: 2 Rubella Status: Immune Blood Type: A- Varicella Immunity: Immune Medication in Delivery: Pt used Nitrous Oxide over course of 2 contractions. Not successful. Nausea Maternal Complications: None Shoulder Dystocia: No Note: Pt delivered on hands in knees. Anterior shoulder delivered without difficulty in usual fashion followed easily but infant's trunk Stages of Labor Onset of Labor Date: 09/07/22 Onset of Labor Time: 17:30 Complete Dilatation Date: 09/08/22 Complete Dilatation Time: 04:45 Labor - Stage 1 Duration: 24 hours and 0 minutes ROM Baby A: 09/08/22 ROM Baby A: 04:08 ROM Total Time- Baby A: [id number] Infant Delivery Date-Baby A: 09/08/22 Infant Delivery Time-Baby A: 04:53 Labor Stage 2 Duration: 8 minutes Placenta Delivery Date-Baby A: 09/08/22 Placenta Delivery Time-Baby A: 04:58 Labor-Stage 3 Duration: 5 minutes Total Length of Labor-Baby A: 11 hours and 23 minutes Placenta Cultured: No Placenta Status: Delivered Baby A Gender: Female Gestational Status: Term (39-41.6 wks) Gestational Age in Weeks/Days: 39 Weeks and 4 Days Length-Baby A: 20.5 in Score-1 Minute Interval(Baby A) Heart Rate-1 minute: 100 BPM or Greater Respiratory Effort- 1 minute: Spontaneous/Strong Cry Muscle Tone-1 minute: Active Movement Reflex Response-1 minute: Prompt Response Color-1 minute: Bluish Hands or Feet Total Score-1 minute: 9 Score-5 Minute Interval(Baby A) Heart Rate- 5 minute: 100 BPM or Greater Respiratory Effort-5 minute: Spontaneous/Strong Cry Muscle Tone-5 minute: Active Movement Reflex Response-5 minute: Prompt Response Color-5 minute: Bluish Hands or Feet Total Score- 5 minute: 9 Note: Parents intend to name the infant Kira Miller. Procedure Procedures: Cord Blood Collection (after delivery - 2 blood tubes to lab.) Interventions Other (none)
[2022-09-08] MEDS: Dibucaine 1% 28 GM TUBE TP (09:21)
[2022-09-08] MEDS: Hamamelis Leaf/Glycerin 100 EACH BOX PR (09:22)
--- NOTE | 2022-09-08 19:35 | NUR.NOTE ---
Nursing Note:MD in to see patient. gave pt hydrogels for nipples and pt requesting Ibuprofen per Dr Dahl.
[2022-09-08] MEDS: Ibuprofen 600 MG TAB PO (19:44)
--- NOTE | 2022-09-08 20:07 | NUR.NOTE ---
Nursing Note:Reviewed with patient hourly check ins. Pt would like to refuse hourly check ins but agreed to call when awake. Safe sleep reviewed with parents at this time.
--- NOTE | 2022-09-09 08:13 | NUR.NOTE ---
Rhogam Lot # [id number], unit # [id number], EXP: 02/14/24 given in Left Deltoid. Nursing Note:
[2022-09-09 09:13] VITALS: BP 119/59; PULSE 52; RESP 16; TEMP 37; O2SAT 99
--- NOTE | 2022-09-09 10:06 | W.PM.DS.N ---
Date of service: 09/09/22 Time of Service: 10:06 DS: Diagnosis Discharge Diagnosis (1) Positive GBS test: Status: Acute (2) Uterine contractions: Status: Acute (3) Vaginal delivery: Status: Acute Discharge Plan Disposition Patient Disposition: HOME Condition: Good Discharge Details Reason For Visit: Term Labor Admit Date/Time: 09/07/22 21:27 Admit Provider: Debora Mejia Attending Provider: Debora Mejia Primary Care Provider: Trina Amos Home Meds and New Rx's Prescriptions: No Action prenat.vits,aftab,bkk-smhk-prwlv Tablet 1 tab PO DAILY Discharge Instructions Stand Alone Forms: BC Instructions, BC Post Vaginal Deliver Activity:: Activity as Tolerated Equipment/Supplies:: No Equipment Needed Diet:: As Tolerated Discharge Orders Discharge Orders: Discharge Order (Routine); Ordered 09/09/22 Ordered By: Debora Mejia DS: Summary Time Spent with Patient providing and/or coordinating discharge services: Less than 30 minutes Status at Discharge Functional status at discharge: independent ambulation Overall status at discharge: patient is back to baseline Mental Status: mental status grossly normal Speech and Movement: speech and movement normal Mood: congruent mood Affect: normal affect Exam Narrative Exam Narrative: Comfortable during the night. Patient has been using breast gels to treat nipple discomfort Const General: no acute distress Nutritional Appearance: average body habitus Orientation: alert, awake and oriented x3 Resp Effort & Inspection: normal respiratory effort General: deferred Other: Fundus firm at 1 fingerbreadth below umbilicus. Skin General skin exam: no rashes or lesions noted Extrem General: normal to inspection Psych Appearance: grossly normal Mental Status: mental status grossly normal Speech and Movement: speech and movement normal Mood: congruent mood Affect: normal affect DS: Data Vitals/I&O Vitals and I&O: Vital Signs Temperature 98.6 F 09/09/22 09:13 Temperature Source Tympanic 09/07/22 23:47 Pulse 52 L 09/09/22 09:13 Pulse Rhythm Regular 09/09/22 07:51 Respiratory Rate 16 09/09/22 09:13 Respiratory Depth Normal 09/09/22 07:51 Blood Pressure 119/59 L 09/09/22 09:13 Blood Pressure Mean 79 09/09/22 09:13 Pulse Oximetry 99 09/09/22 09:13 Oxygen Delivery Method Room Air 09/07/22 23:47 Oxygen Flow Rate 0 09/07/22 23:47 Pain Level 2 09/09/22 09:13 Intake & Output 09/08/22 09/08/22 09/09/22 11:59 23:59 11:59 Intake Total 790 / 790 Output Total 1650 / 2250 600 / 2250 Balance -860 / -1460 -600 / -1460 Intake: Oral 790 / 790 Output: Urine 1650 / 2250 600 / 2250 Other: Urine Color Dark Dyana Data Completed and Pending Labs on day of discharge: Labs from last 24 hours 09/08/22 09/07/22 07:05 22:02 Patient ABO/Rh A Negative Antibody Screen POSITIVE Antibody Identification Anti-D Screen Negative Rhogam Unit Number [id number] Unit Expiration Date 02/14/24 Product Lot # [id number] [facility] All Active Problems (Updated 09/09/22 @ 10:07 by Debora Mejia MD) Vaginal delivery (Acute) Positive GBS test (Acute) Uterine contractions (Acute) (Acute) Medical History (Updated 09/09/22 @ 10:07 by Debora Mejia MD) Chronic mastitis of left breast 11/2021. Rx with extended course of Fluconazole for yeast mastitis sx. Sx improved. Placenta previa Spontaneous vaginal delivery 06/02/2021. Jerry Frazier 09/08/22. Jerry Miller Surgical History S/P appendectomy S/P wisdom tooth extraction Family History (Updated 02/21/22 @ 10:24 by Jazmine Roldan CNM) Father Well adult Mother Well adult Maternal Grandfather Cancer lymphoma ? if hodgkins vs non-hodgkins. al Maternal Grandmother H/O abdominal hysterectomy H/O cardiac pacemaker Paternal Grandmother Hx of adjunct faculty for medical terminology use of blood thinners Palsy, Wilkinson's Pulmonary embolism Social History (Updated 06/03/21 @ 11:24 by Debora Mejia MD) Smoking/Tobacco Use Status: Never Smoking risk assessment performed?: Yes Alcohol Intake: never Drug use: Never Substance use type: does not use Household members: spouse, children and other Details: Jarad Marks Number of Children: 1 Do you feel safe at home: Yes Do you feel safe in your relationship?: Yes History History 2 Para 1 Hx # Term Pregnancies 1 Multiple births 0 Hx # Pregnancies 0 Ectopic pregnancies 0 AB induced 0 Hx Number of Living Children 1 AB spontaneous 1 Past Pregnancies Del. Date GA/Weeks # Preg Succ Route Wgt Sex Labor Lgth Anesthesia Location Prov Complic 06/02/21 40 No vaginal 8 lb 0.926 oz Female 18 hours. regional AOC 09/08/22 39 No Yes vaginal 8 lb 1.632 oz Female 11hrs aoc Delivery Date: 06/02/21 Last Updated by: Marline WrayD over midline episiotomy. Epidural. Karin. Delivery Date: 09/08/22 Last Updated by: MD Pat Wray' Apgars 8/9.
== END 2022-09-09 11:00 | disposition home or self-care (01) | DRG 807 ==
PROVIDERS: Admitting Provider Obstetrics & Gynecology Gynecology; PCP Internal Medicine; Visit Provider Obstetrics & Gynecology Gynecology
DX: O36.0930 Maternal care for other rhesus isoimmunization, third trimester, not applicable or unspecified (principal); Z37.0 Single live birth; O99.824 Streptococcus B carrier state complicating childbirth; Z3A.39 39 weeks gestation of pregnancy
CPT/HCPCS: 36415; 85027; 85461; 86850; 86900; 86901; 87635; 90384; 86870; J2540; J3490

== ENCOUNTER 2023-08-14 03:59 | Outpatient (CLI) | payer SELFPAY ==
[2023-08-14 14:37] LABS: Abs Immature Grans 0.03 10^3/uL (0.0-0.06); Absolute Basophil Count 0.02 10^3/uL (0.0-0.2); Absolute Eosinophil Count 0.05 10^3/uL (0.0-0.7); Absolute Lymphocyte Count 1.82 10^3/uL (1.2-3.4); Basophils % 0.2; Eosinophils % 0.5; HCT 39.9 % (36.0-46.0); HGB 13.9 g/dL (11.2-15.7); Immature Grans % 0.3; Lymphocytes % 16.7; MCH 31.6 pg (27.0-33.0); MCHC 34.8 % (32.0-36.0); MCV 91 fL (80-95); MPV 9.6 fL (8.0-11.0); Monocytes % 5.5; Neutrophils % 76.8; Platelet Count 271 10^3/uL (130-400); RDW 12.7 % (11.7-14.6); RDW-SD 41.9 fL
[2023-08-14 14:38] LABS: Absolute Neutrophil Count 8.37 10^3/uL (1.2-6.7)
[2023-08-15 10:22] LABS: Hepatitis B Surface Ag Negative (Negative)
[2023-08-15 10:54] LABS: Hepatitis C Ab w Rflx HCV PCR Negative (Negative)
[2023-08-15 10:58] LABS: HIV-1/2 Ag & Ab Screen Negative (Negative)
[2023-08-15 11:31] LABS: Varicella IgG Antibody Positive (See Note)
[2023-08-15 11:35] LABS: Rubella IgG Ab (UVM) Positive (See Note)
[2023-08-17 12:53] LABS: Syphilis IgG w/Reflex Nonreactive (Nonreactive)
== END 2023-08-14 04:00 | disposition home or self-care (01) ==
LOC: LBO 04:00
PROVIDERS: PCP Internal Medicine; Visit Provider Advanced Practice Midwife
DX: Z34.91 Encounter for supervision of normal pregnancy, unspecified, first trimester (principal); Z3A.11 11 weeks gestation of pregnancy
CPT/HCPCS: 36415; 86787; 86803; 86850; 86900; 86901; 87340; 87389; 85025; 86762; 86780

== ENCOUNTER 2023-08-14 13:49 | Outpatient (REF) | payer SELFPAY ==
--- NOTE | 2023-08-14 13:30 | PAPFT_PTH ---
PATIENT: Brea Rivera LOC: IAN U#:[id number] AGE/SX: 27/F ROOM: RE08/14/[address]: Jazmine Vizcaino CNM : 1995 BED: DIS: 08/14/2023 SPEC #: [id number] RECD: 08/14/23 17:29 STATUS: SHER REQ #: [id number] KARSTEN: 08/14/23 13:[address]: Jazmine Vizcaino DEPT: [facility] Cytology RECD BY: Ritika Bills ENTERED: 08/14/23 17:30 SP TYPE: PAPFT OTHR DR: Trina Amos Tissues: 1 - CX/ENDOCX FOR PAP SMEARS Procedures: PAP THIN PREP/UVM Screening Comments: [id number] (CHLAMYDIA/GC)
[2023-08-15 15:30] LABS: Chlamydia Result Negative (Negative); GC Result Negative (Negative)
== END 2023-08-14 13:50 | disposition home or self-care (01) ==
LOC: LBN 13:49
PROVIDERS: PCP Internal Medicine; Visit Provider Advanced Practice Midwife
DX: Z34.91 Encounter for supervision of normal pregnancy, unspecified, first trimester (principal); Z11.3 Encounter for screening for infections with a predominantly sexual mode of transmission; Z3A.11 11 weeks gestation of pregnancy; Z12.4 Encounter for screening for malignant neoplasm of cervix
CPT/HCPCS: 87491; 87591; 88142; 87086

== ENCOUNTER 2023-12-16 03:33 | Outpatient (CLI) | payer OTHER, SELFPAY ==
[2023-12-16 11:21] LABS: Abs Immature Grans 0.04 10^3/uL (0.0-0.06); Absolute Basophil Count 0.03 10^3/uL (0.0-0.2); Absolute Eosinophil Count 0.04 10^3/uL (0.0-0.7); Absolute Lymphocyte Count 1.25 10^3/uL (1.2-3.4); Absolute Monocyte Count 0.55 10^3/uL (0.1-0.8); Absolute Neutrophil Count 8.63 10^3/uL (1.2-6.7); Basophils % 0.3; Eosinophils % 0.4; HCT 37.6 % (36.0-46.0); HGB 12.8 g/dL (11.2-15.7); Immature Grans % 0.4; Lymphocytes % 11.9; MCH 31.8 pg (27.0-33.0); MCV 94 fL (80-95); MPV 9.5 fL (8.0-11.0); Monocytes % 5.2; Neutrophils % 81.8; Platelet Count 255 10^3/uL (130-400); RBC 4.02 10^6/uL (3.93-5.22); RDW 13.3 % (11.7-14.6); RDW-SD 46.1 fL; WBC 10.54 10^3/uL (4.4-10.8)
[2023-12-16 11:36] LABS: Glucose,1 Hr (Glucola) 105 mg/dL (80-140)
== END 2023-12-16 03:34 | disposition home or self-care (01) ==
LOC: LBO 03:33
PROVIDERS: PCP Internal Medicine; Visit Provider Obstetrics & Gynecology
DX: Z34.92 Encounter for supervision of normal pregnancy, unspecified, second trimester
CPT/HCPCS: 36415; 82950; 86850; 86900; 86901; 90384; 85025

== ENCOUNTER 2024-02-13 13:37 | Outpatient (REF) | payer OTHER, SELFPAY | END 2024-02-13 13:38 | disposition home or self-care (01) | LOC: LBN 13:37 | PROVIDERS: PCP Internal Medicine; Visit Provider Obstetrics & Gynecology | DX: Z34.93 Encounter for supervision of normal pregnancy, unspecified, third trimester (principal); Z36.85 Encounter for antenatal screening for Streptococcus B; Z3A.37 37 weeks gestation of pregnancy | CPT/HCPCS: 87081 ==

== ENCOUNTER 2024-03-04 21:03 | Inpatient (IN) | payer OTHER, SELFPAY ==
[2024-03-04] VITALS (7 sets, daily range): BP systolic 130–144; BP diastolic 77–95; PULSE 67–100; RESP 14–16; TEMP 36.6–36.7; O2SAT 98
--- NOTE | 2024-03-04 07:45 | W.OBNST ---
Date of service: 03/04/24 Time of Service: 07:00 NST Evaluation Reason for NST Reasons for Nonstress Test: FALSE LABOR Gestational Age Gestational Age in Weeks and Days: 40 Weeks and 0Days Test and Monitor Explained Test/Monitor Explained: Test Explained NST Information Date on Monitor: 03/04/24 Time on Monitor: 02:50 Date off Monitor: 03/04/24 Time off Monitor: 04:50 Total Time on Monitor: 120 NST Interventions: None NST Evaluation Patient States Movement: Present FHR Baseline: 135 Variability: Absent Decelerations: None NST Results: Reactive Note Ultrasound Done: N/A. NST Note Note: Pt came in with ctxs q3-5min that woke her up at night. She denies leaking fluid or bleeding and is feeling normal movement. She was observed for >2hrs and her cervix was rechecked and remained 2/50/-3 with the head slightly to maternal right side of the pelvis. She is considering an induction but we were unable to offer that to her at this time due to business of the unit and staffing. She may decide to come back tomorrow am - she will call us to let us know. NST Reviewed and Verified by: Romy Montague
[2024-03-04 21:25] LABS: HCT 39.4 % (36.0-46.0); HGB 13.7 g/dL (11.2-15.7); MCH 33.4 pg (27.0-33.0); MCHC 34.8 % (32.0-36.0); MCV 96 fL (80-95); MPV 10.6 fL (8.0-11.0); Platelet Count 206 10^3/uL (130-400); RDW 13.4 % (11.7-14.6); RDW-SD 47.7 fL; WBC 13.47 10^3/uL (4.4-10.8)
[2024-03-04] MEDS: Acetaminophen 325 MG TAB 650 MG PO (21:40)
[2024-03-04 21:42] LABS: ALT 15 U/L (14-59); AST 17 U/L (15-37); Albumin 2.6 g/dL (3.4-5.0); Alkaline Phosphatase 195 U/L (46-116); Anion Gap 11.7 mmol/L (3-11); BUN 10 mg/dL (7-18); Bilirubin, Total 0.4 mg/dL (0.2-1.0); CO2 23.3 mmol/L (21.0-32.0); CREATININE 0.6 mg/dL (0.55-1.02); Calcium 8.8 mg/dL (8.5-10.1); Chloride 105 mmol/L (98-107); Estimated GFR 126.09 (mL/min/1.73m2); Glucose 108 mg/dL (74-106); Potassium 3.5 mmol/L (3.5-5.1); Sodium 140 mmol/L (136-145); Total Protein 6.8 g/dL (6.4-8.2)
--- NOTE | 2024-03-04 21:59 | W.PM.OBNL1 ---
Date of service: 03/04/24 Time of Service: 09:30 Objective Abnormal lab results 03/04/24 Range/Units 21:15 WBC 13.47 H (4.4-10.8) 10^3/uL MCV 96 H (80-95) fL MCH 33.4 H (27.0-33.0) pg Anion Gap 11.7 H (3-11) mmol/L Glucose 108 H (74-106) mg/dL Alkaline Phosphatase 195 H (46-116) U/L Albumin 2.6 L (3.4-5.0) g/dL Temp Pulse Resp BP Pulse Ox 97.9 F 83 16 131/85 98 03/04/24 15:03 03/04/24 21:44 03/04/24 15:03 03/04/24 21:44 03/04/24 15:03 Laboratory Results WBC 13.47 10^3/uL (4.4-10.8) H 03/04/24 21:15 RBC 4.10 10^6/uL (3.93-5.22) 03/04/24 21:15 Hgb 13.7 g/dL (11.2-15.7) 03/04/24 21:15 Hct 39.4 % (36.0-46.0) 03/04/24 21:15 MCV 96 fL (80-95) H 03/04/24 21:15 MCH 33.4 pg (27.0-33.0) H 03/04/24 21:15 MCHC 34.8 % (32.0-36.0) 03/04/24 21:15 RDW 13.4 % (11.7-14.6) 03/04/24 21:15 Plt Count 206 10^3/uL (130-400) 03/04/24 21:15 MPV 10.6 fL (8.0-11.0) 03/04/24 21:15 Sodium 140 mmol/L (136-145) 03/04/24 21:15 Potassium 3.5 mmol/L (3.5-5.1) 03/04/24 21:15 Chloride 105 mmol/L (98-107) 03/04/24 21:15 Carbon Dioxide 23.3 mmol/L (21.0-32.0) 03/04/24 21:15 Anion Gap 11.7 mmol/L (3-11) H 03/04/24 21:15 BUN 10 mg/dL (7-18) 03/04/24 21:15 Creatinine 0.6 mg/dL (0.55-1.02) 03/04/24 21:15 Est GFR (CKD-EPI 2020) 126.09 (mL/min/1.73m2) 03/04/24 21:15 Glucose 108 mg/dL (74-106) H 03/04/24 21:15 Calcium 8.8 mg/dL (8.5-10.1) 03/04/24 21:15 Total Bilirubin 0.4 mg/dL (0.2-1.0) 03/04/24 21:15 AST 17 U/L (15-37) 03/04/24 21:15 ALT 15 U/L (14-59) 03/04/24 21:15 Alkaline Phosphatase 195 U/L (46-116) H 03/04/24 21:15 Total Protein 6.8 g/dL (6.4-8.2) 03/04/24 21:15 Albumin 2.6 g/dL (3.4-5.0) L 03/04/24 21:15 Results Hemoglobin/Hematocrit: Hgb 13.7 g/dL (11.2-15.7) 03/04/24 21:15 Hct 39.4 % (36.0-46.0) 03/04/24 21:15 Abnormal Lab Findings: Abnormal Labs 03/04/24 21:15 WBC 13.47 H MCV 96 H MCH 33.4 H Anion Gap 11.7 H Glucose 108 H Alkaline Phosphatase 195 H Albumin 2.6 L
[2024-03-04] MEDS: miSOPROStol 25 MCG TAB PO (22:04)
[2024-03-04] MEDS: Zolpidem 5 MG TAB PO (22:10)
[2024-03-04] MEDS: Penicillin G POT. 5,000,000 UNITS in Normal Saline 100 ML 200 UNITS IVPB (22:24)
[2024-03-05] VITALS (36 sets, daily range): BP systolic 112–138; BP diastolic 65–95; PULSE 70–118; RESP 14–16; TEMP 36.5–37.1; O2SAT 97–99; BMI 34.3
--- NOTE | 2024-03-05 01:35 | HPE_ITS ---
Date of service: 03/05/24 Time of Service: 19:00 Assessment and Plan Assessment and plan (1) : Assessment and plan: Will plan for misoprostol for induction of labor. Continue to monitor BPs - PEC labs wnl, headache improved with tylenol. GBS ppx started. OB-HPI Labor/Delivery History of Present Illness Reason for Visit: induction Chief Complaint: Uterine Contractions. NEREYDA Calculator Estimated Delivery Date Method Current WG Current Estimate 03/04/24 Ultrasound #1 40w 1d Other Estimates 02/28/24 LMP (Certain) 40w 6d History of Present Expected Delivery Route/Plan JOHN - Specific Issues/Plan 1. Close interval 2. Rh neg, RhoGam @ 28 wks 3. b/l mild hydronephrosis - repeat sono at 28wks: hydronephrosis resolved 4. GBS+ Narrative: Pt started donavon early in the am and was evaluated for labor with no cervical change. However, she continued to have ctxs q5-8min and desired augmentation of labor. This was delayed throughout the day due to unavailability of staff. In the evening she did c/o a headache. Otherwise she was feeling tired but no other changes. Review of Systems Constitutional Constitutional: Reports system reviewed and no additional complaints, except as documented Gastrointestinal Gastrointestinal: Denies nausea and Denies vomiting Genitourinary Genitourinary: Reports system reviewed and no additional complaints, except as documented Musculoskeletal Comments: No regular contractions PFSH All Active Problems (Updated 03/05/24 @ 01:45 by Romy Montague MD) Rh negative status during (Acute) Medical History (Updated 03/05/24 @ 01:45 by Romy Montague MD) hydronephrosis during , antepartum mild b/l on lexie sono - repeat 28wk sono resolved Spontaneous vaginal delivery 06/02/2021. Jerry Frazier 09/08/22. Jerry Miller Surgical History S/P wisdom tooth extraction S/P appendectomy Family History Father Well adult Mother Well adult Maternal Grandfather Cancer lymphoma ? if hodgkins vs non-hodgkins. al Maternal Grandmother H/O abdominal hysterectomy H/O cardiac pacemaker Paternal Grandmother Hx of roasterman use of blood thinners Palsy, Wilkinson's Pulmonary embolism Social History Smoking/Tobacco Use Status: Never Smoking risk assessment performed?: Yes Alcohol Intake: never Drug use: Never Substance use type: does not use Household members: spouse, children and other Details: H-Kalyan. D-Karin Number of Children: 1 Do you feel safe at home: Yes Do you feel safe in your relationship?: Yes History History 4 Para 2 Hx # Term Pregnancies 2 Multiple births 0 Hx # Pregnancies 0 Ectopic pregnancies 0 AB induced 0 Hx Number of Living Children 2 AB spontaneous 1 Past Pregnancies Del. Date GA/Weeks # Preg Succ Route Wgt Sex Labor Lgth Anesth esia Location [facility] 05/03/20 10 No No 06/02/21 40 No vaginal 8 lb 0.926 oz Female 18 hours. regional AOC 09/08/22 39 No Yes vaginal 8 lb 1.632 oz Female 11hrs aoc Delivery Date: 05/03/20 Last Updated by: Jazmine Vizcaino CNM SAB blighted ovum Delivery Date: 06/02/21 Last Updated by: Debora Mejia M.D. over midline episiotomy. Epidural. Karin. Delivery Date: 09/08/22 Last Updated by: MD Pat Wray' Apgars 8/9. Meds Allergies and Home Medications Allergies Allergy/AdvReac Type Severity Reaction Status Date / Time No Known Allergies Allergy Verified 02/23/24 13:02 Home Medications Medication Instructions Recorded Confirmed Type prenat.vits,aftab,wbi-afzr-elssm 1 tab PO DAILY 05/03/20 03/04/24 History Exam Physical Exam Vital signs: Temp Pulse Resp BP Pulse Ox 97.9 F 83 16 131/85 98 03/04/24 15:03 03/04/24 21:44 03/04/24 15:03 03/04/24 21:44 03/04/24 15:03 Vital Signs Reviewed: Yes Narrative: Pt had 2 BPs >140/90 over a few hrs in the evening. Detailed Labor and Delivery Exam Champion Score: Cervical Points Exam 0 1 2 3 Dilation Closed 1-2cm 3-4 cm 5-6cm Effacement 0-30% 40-50% 60-70% 80% Consistency Firm Medium Soft Station -3 -2 -1,0 +1,+2 Position Posterior Mid Anterior Comments: Exam not repeated due to no increase in contractions Fetus A Heart Rate Baseline: 130 Monitor Accelerations: 15 X 15 Monitor Decelerations: None Variability: Moderate (6-25 BPM) Presentation: Vertex Categories: Category I Detailed HEENT Exam Head: Present normocephalic and atraumatic Detailed Abdominal Exam Comments: gravid, nontender Detailed Extremities Exam Comments: 1+edema b/l Detailed Neurological Exam Neurological: Present alert, oriented X3 and CN II-XII intact DetailedPsychiatric Exam Psychiatric: Present normal affect, normal thought process and cooperative Results Results Group Beta Strep: Positive Blood Type: A- Rubella Status: Immune Varicella Immunity: Immune Abnormal Lab Findings: Abnormal Labs 03/04/24 21:15 WBC 13.47 H MCV 96 H MCH 33.4 H Anion Gap 11.7 H Glucose 108 H Alkaline Phosphatase 195 H Albumin 2.6 L Risk Assessment Risk for Shoulder Dystocia Historical/Initial OB: NEGATIVE FOR: Pelvic Abnormality, Pre- BMI>30, Previous Shoulder Dystocia or Previous Macrosomia Date/Initial: 08/14/23 Risk for Pre-Eclampsia Yes, if one or more: NEGATIVE FOR: Hx Pre-E/Gest HTN, Chronic HTN, Multiple Gestation, Pre-gestational DM, Renal Disease, Systemic Lupus or APA Syndrome Yes, if 2 or more: NEGATIVE FOR: Nulliparity, Age>= 35 yrs, >10yr btwn pregnancies, BMI>30, ethinicty, Mother/Sister w/ Pre-E or Previous IUGR Risk for Post- Hemorrhage Initial: NEGATIVE FOR: Multiple Gestation, Previous PPH, Known Clotting Deficiency, Grand Multiparity or Anticoagulation Risks Reviewed Risks Reviewed Upon Admission: Yes
--- NOTE | 2024-03-05 02:45 | PLAC_PTH ---
PATIENT: Brea Rivera LOC: OBS U#:[id number] AGE/SX: 28/F ROOM: OBS.303 RE03/04/[address]: Romy Montague MD : 1995 BED: A DIS: 03/07/2024 SPEC #: [id number] RECD: 03/08/24 12:57 STATUS: SHER REQ #: [id number] KARSTEN: 03/05/24 02:[address]: Romy Montague DEPT: Surgical Specimen RECD BY: Ritika Bills ENTERED: 03/08/24 12:58 SP TYPE: PLAC OTHR DR: Trina Amos Tissues: 1 - PLACENTA (3RD TRIMESTER) Procedures: GROSS AND MICRO LEVEL 5 Comments: [id number]
[2024-03-05] MEDS: Penicillin G POT. 3,000,000 UNITS in Normal Saline 50 ML 100 UNITS IVPB ×4 (02:48→14:26)
[2024-03-05] MEDS: miSOPROStol 25 MCG TAB PO (02:48)
--- NOTE | 2024-03-05 08:55 | ANES.PREOP_ITS ---
General Info Date of Service Date Performed: 03/05/24 Height: 5 ft 4 in Weight: 90.718 kg Body Mass Index (BMI): 34.3 Meds Allergies and Home Medications Allergies Allergy/AdvReac Type Severity Reaction Status Date / Time No Known Allergies Allergy Verified 02/23/24 13:02 Home Medication Medication Instructions Recorded prenat.vits,aftab,uld-pvvf-fwiwm 1 tab PO DAILY 05/03/20 Current Visit Medications: Current Medications Generic Name Dose Route Start Last Admin Trade Name Frelogan PRN Reason Stop Dose Admin Acetaminophen 650 mg 03/04/24 21:34 03/04/24 21:40 Acetaminophen 325 Mg Tab PO 650 mg Q4H PRN PRN Administration Ringer's Solution 1,000 mls @ 200 mls/hr 03/04/24 21:15 IV INFUSION TRACY Penicillin G Potassium 3,000, 50 mls @ 100 mls/hr 03/05/24 02:00 03/05/24 06:40 000 units/ Sodium Chloride IVPB 100 mls/hr Q4H TRACY Administration IV Miscellaneous Supplies 1 each 03/04/24 22:00 Iv Access IV DIRECTED TRACY Misoprostol 25 mcg 03/04/24 22:00 03/05/24 02:48 Misoprostol 25 Mcg Tab PO 25 mcg Q4H TRACY Administration Sodium Chloride 0 ml 03/04/24 21:50 Normal Saline Flush 10 Ml Syr IVP PRN PRN Sodium Chloride 0 ml 03/05/24 08:30 Normal Saline Flush 10 Ml Syr IVP BID TRACY Sodium Chloride 0 ml 03/04/24 21:50 Normal Saline 10 Ml Vial IJ DIRECTED PRN Terbutaline Sulfate 0.25 mg 03/04/24 21:03 Terbutaline 1 Mg/Ml Vial SC PRN PRN Zolpidem Tartrate 10 mg 03/05/24 21:00 Zolpidem 5 Mg Tab PO 2100 TRACY Zolpidem Tartrate 5 mg 03/04/24 21:12 03/04/24 22:10 Zolpidem 5 Mg Tab PO 5 mg HS PRN PRN Administration PFSH Active Problems Active Problems: Problem Status Onset Code Rh negative status during O26.899, Z67.91 Medical History Medical History (Updated 03/05/24 @ 01:45 by Romy Montague MD) hydronephrosis during , antepartum mild b/l on lexie sono - repeat 28wk sono resolved Spontaneous vaginal delivery 06/02/2021. Jerry Frazier 09/08/22. Jerry Miller Surgical History Surgical History S/P wisdom tooth extraction S/P appendectomy Tobacco Smoking/Tobacco Use Status: Never Alcohol Alcohol Intake: never Substance Use Substance use: Never Substance use type: does not use Prental History History 2 4 Para 2 Hx # Term Pregnancies 2 Multiple births 0 Hx # Pregnancies 0 Ectopic pregnancies 0 AB induced 0 Hx Number of Living Children 2 AB spontaneous 1 Past Pregnancies Del. Date GA/Weeks # Preg Succ Route Wgt Sex Labor Lgth Anesth esia Location Prov Complic 05/03/20 10 No No 06/02/21 40 No vaginal 3654.991 g Female 18 hours. regional AOC 09/08/22 39 No Yes vaginal 3675 g Female 11hrs aoc Delivery Date: 05/03/20 Last Updated by: Jazmine Vizcaino CNM SAB blighted ovum Delivery Date: 06/02/21 Last Updated by: Debora Mejia M.D. over midline episiotomy. Epidural. Karin. Delivery Date: 09/08/22 Last Updated by: MD Pat Wray' Apgars 8/9. Vital Signs and Lab Results Vital Signs Most Recent Vital Signs in EMR: Most Recent Vital Signs Temp Pulse Resp BP Pulse Ox 36.8 C 90 14 121/74 98 03/05/24 08:15 03/05/24 08:16 03/05/24 08:15 03/05/24 08:16 03/04/24 15:03 Lab Results 03/04/24 21:15 03/04/24 21:15 Blood Type / Crossmatch: 2 Patient ABO/Rh A Negative 03/04/24 Antibody Screen POSITIVE 03/04/24 Complete Blood Count: 2 White Blood Count 13.47 10^3/uL (4.4-10.8) H 03/04/24 21:15 Red Blood Count 4.10 10^6/uL (3.93-5.22) 03/04/24 21:15 Hemoglobin 13.7 g/dL (11.2-15.7) 03/04/24 21:15 Hematocrit 39.4 % (36.0-46.0) 03/04/24 21:15 Platelet Count 206 10^3/uL (130-400) 03/04/24 21:15 Complete Metabolic Panel: 2 Sodium 140 mmol/L (136-145) 03/04/24 21:15 Potassium 3.5 mmol/L (3.5-5.1) 03/04/24 21:15 Chloride 105 mmol/L (98-107) 03/04/24 21:15 Carbon Dioxide 23.3 mmol/L (21.0-32.0) 03/04/24 21:15 BUN 10 mg/dL (7-18) 03/04/24 21:15 Creatinine 0.6 mg/dL (0.55-1.02) 03/04/24 21:15 Est GFR (CKD-EPI 2020) 126.09 (mL/min/1.73m2) 03/04/24 21:15 Calcium 8.8 mg/dL (8.5-10.1) 03/04/24 21:15 Albumin 2.6 g/dL (3.4-5.0) L 03/04/24 21:15 Glucose 108 mg/dL (74-106) H 03/04/24 21:15 Liver Function Panel: 2 Alanine Aminotransferase (ALT/SGPT) 15 U/L (14-59) 03/04/24 21: 15 Aspartate Amino Transf (AST/SGOT) 17 U/L (15-37) 03/04/24 21:15 Coagulation Panel: 2 No Data to Display Cardiac Panel: 2 No Data to Display Arterial Blood Gas: 2 No Data to Display Venous Blood Gas: 2 No Data to Display Pancreas Panel: 2 No Data to Display Thyroid Panel: 2 No Data to Display Infectious Disease: 2 No Data to Display Blood Cultures: 2 No Data to Display Toxicology Panel: 2 No Data to Display Panel: 2 No Data to Display Anesthesia Assessment and Plan Anesthesia History Personal History: No History of Anesthesia Complications Family History: No Family History of Anesthesia Complications Exercise Tolerance Exercise Tolerance: Metabolic Equivalents>4 Pertinent Negatives Pertinent Negatives: No Major Cardiovascular Symptoms or Complaints, No Major Pulmonary Symptoms or Complaints and No History of CVA/TIA Cardiac & Pulmonary Exam Cardiac Exam: Normal S1/S2 Heart Sounds Pulmonary Exam: Clear Bilateral Breath Sounds Implantable Cardiac Device Does patient have a Pacemaker or an ICD?: No Airway Exam Known Difficult Airway: No Mallampati Class: 2 Mouth Opening: Normal (> 3cm) Thyromental Distance: Greater than 3 cm Neck Range of Motion: Full ROM Neck Circumference: Normal Teeth Condition: Normal Dentition ASA Classification ASA Score: ASA 1 Emergency Case?: No NPO Status NPO Status: Full Stomach Status Status: Confirmed Anesthesia Plan Resuscitation Status: Full Code Anesthesia Technique: Labor Epidural Airway Planned: Natural Airway Monitors Used: Standard Monitors
--- NOTE | 2024-03-05 09:02 | W.PM.OBNL1 ---
Date of service: 03/05/24 Time of Service: 09:02 Objective Abnormal lab results 03/04/24 Range/Units 21:15 WBC 13.47 H (4.4-10.8) 10^3/uL MCV 96 H (80-95) fL MCH 33.4 H (27.0-33.0) pg Anion Gap 11.7 H (3-11) mmol/L Glucose 108 H (74-106) mg/dL Alkaline Phosphatase 195 H (46-116) U/L Albumin 2.6 L (3.4-5.0) g/dL Temp Pulse Resp BP Pulse Ox 98.2 F 90 14 121/74 98 03/05/24 08:15 03/05/24 08:16 03/05/24 08:15 03/05/24 08:16 03/04/24 15:03 Laboratory Results WBC 13.47 10^3/uL (4.4-10.8) H 03/04/24 21:15 RBC 4.10 10^6/uL (3.93-5.22) 03/04/24 21:15 Hgb 13.7 g/dL (11.2-15.7) 03/04/24 21:15 Hct 39.4 % (36.0-46.0) 03/04/24 21:15 MCV 96 fL (80-95) H 03/04/24 21:15 MCH 33.4 pg (27.0-33.0) H 03/04/24 21:15 MCHC 34.8 % (32.0-36.0) 03/04/24 21:15 RDW 13.4 % (11.7-14.6) 03/04/24 21:15 Plt Count 206 10^3/uL (130-400) 03/04/24 21:15 MPV 10.6 fL (8.0-11.0) 03/04/24 21:15 Sodium 140 mmol/L (136-145) 03/04/24 21:15 Potassium 3.5 mmol/L (3.5-5.1) 03/04/24 21:15 Chloride 105 mmol/L (98-107) 03/04/24 21:15 Carbon Dioxide 23.3 mmol/L (21.0-32.0) 03/04/24 21:15 Anion Gap 11.7 mmol/L (3-11) H 03/04/24 21:15 BUN 10 mg/dL (7-18) 03/04/24 21:15 Creatinine 0.6 mg/dL (0.55-1.02) 03/04/24 21:15 Est GFR (CKD-EPI 2020) 126.09 (mL/min/1.73m2) 03/04/24 21:15 Glucose 108 mg/dL (74-106) H 03/04/24 21:15 Calcium 8.8 mg/dL (8.5-10.1) 03/04/24 21:15 Total Bilirubin 0.4 mg/dL (0.2-1.0) 03/04/24 21:15 AST 17 U/L (15-37) 03/04/24 21:15 ALT 15 U/L (14-59) 03/04/24 21:15 Alkaline Phosphatase 195 U/L (46-116) H 03/04/24 21:15 Total Protein 6.8 g/dL (6.4-8.2) 03/04/24 21:15 Albumin 2.6 g/dL (3.4-5.0) L 03/04/24 21:15 Patient ABO/Rh A Negative 03/04/24 21:15 Antibody Screen POSITIVE 03/04/24 21:15 Antibody Identification Anti-D 03/04/24 21:15 Subjective Interval history since last seen: Patient seen and examined this morning. She is status post 2 doses of misoprostol for cervical ripening. Dr. Gonzalez had performed an ultrasound to confirm position. She is having some occasional irregular contractions. She slept well through the night last night. She will shower, eat breakfast, and we will reassess her cervical examination. She has received her first dose of antibiotics for group B strep prophylaxis. If cervical rightness is appropriate, we will begin Pitocin augmentation. All questions were answered. Results Hemoglobin/Hematocrit: Hgb 13.7 g/dL (11.2-15.7) 03/04/24 21:15 Hct 39.4 % (36.0-46.0) 03/04/24 21:15 Abnormal Lab Findings: Abnormal Labs 03/04/24 21:15 WBC 13.47 H MCV 96 H MCH 33.4 H Anion Gap 11.7 H Glucose 108 H Alkaline Phosphatase 195 H Albumin 2.6 L
[2024-03-05] MEDS: Oxytocin/Normal Saline 30 UNIT/500 ML BAG 1 UNITS IV (11:55)
--- NOTE | 2024-03-05 17:11 | W.PM.OBNL1 ---
Date of service: 03/05/24 Time of Service: 17:11 Pelvic Exam Dilation: 5 Effacement (%): 5 station: -2 Objective Abnormal lab results 03/04/24 Range/Units 21:15 WBC 13.47 H (4.4-10.8) 10^3/uL MCV 96 H (80-95) fL MCH 33.4 H (27.0-33.0) pg Anion Gap 11.7 H (3-11) mmol/L Glucose 108 H (74-106) mg/dL Alkaline Phosphatase 195 H (46-116) U/L Albumin 2.6 L (3.4-5.0) g/dL Temp Pulse Resp BP Pulse Ox 98.2 F 99 H 14 138/85 99 03/05/24 11:27 03/05/24 16:43 03/05/24 11:27 03/05/24 16:41 03/05/24 16:43 Laboratory Results WBC 13.47 10^3/uL (4.4-10.8) H 03/04/24 21:15 RBC 4.10 10^6/uL (3.93-5.22) 03/04/24 21:15 Hgb 13.7 g/dL (11.2-15.7) 03/04/24 21:15 Hct 39.4 % (36.0-46.0) 03/04/24 21:15 MCV 96 fL (80-95) H 03/04/24 21:15 MCH 33.4 pg (27.0-33.0) H 03/04/24 21:15 MCHC 34.8 % (32.0-36.0) 03/04/24 21:15 RDW 13.4 % (11.7-14.6) 03/04/24 21:15 Plt Count 206 10^3/uL (130-400) 03/04/24 21:15 MPV 10.6 fL (8.0-11.0) 03/04/24 21:15 Sodium 140 mmol/L (136-145) 03/04/24 21:15 Potassium 3.5 mmol/L (3.5-5.1) 03/04/24 21:15 Chloride 105 mmol/L (98-107) 03/04/24 21:15 Carbon Dioxide 23.3 mmol/L (21.0-32.0) 03/04/24 21:15 Anion Gap 11.7 mmol/L (3-11) H 03/04/24 21:15 BUN 10 mg/dL (7-18) 03/04/24 21:15 Creatinine 0.6 mg/dL (0.55-1.02) 03/04/24 21:15 Est GFR (CKD-EPI 2020) 126.09 (mL/min/1.73m2) 03/04/24 21:15 Glucose 108 mg/dL (74-106) H 03/04/24 21:15 Calcium 8.8 mg/dL (8.5-10.1) 03/04/24 21:15 Total Bilirubin 0.4 mg/dL (0.2-1.0) 03/04/24 21:15 AST 17 U/L (15-37) 03/04/24 21:15 ALT 15 U/L (14-59) 03/04/24 21:15 Alkaline Phosphatase 195 U/L (46-116) H 03/04/24 21:15 Total Protein 6.8 g/dL (6.4-8.2) 03/04/24 21:15 Albumin 2.6 g/dL (3.4-5.0) L 03/04/24 21:15 Patient ABO/Rh A Negative 03/04/24 21:15 Antibody Screen POSITIVE 03/04/24 21:15 Antibody Identification Anti-D 03/04/24 21:15 Subjective Interval history since last seen: Patient seen and examined. More uncomfortable with uterine contractions now every 2 to 3 minutes. She has been ambulating with monitor in place. She did have 1 deceleration to the 60s and improved with position change. Bedside ultrasound reconfirmed vertex position. Difficult to ascertain due to bulging bag of water. Now 5 cm, 50%, -2. Patient will continue to ambulate. Pain control as warranted. May desire an epidural if increased pain and little progress. If baby is male, circumcision is desired. All questions answered Results Hemoglobin/Hematocrit: Hgb 13.7 g/dL (11.2-15.7) 03/04/24 21:15 Hct 39.4 % (36.0-46.0) 03/04/24 21:15 Abnormal Lab Findings: Abnormal Labs 03/04/24 21:15 WBC 13.47 H MCV 96 H MCH 33.4 H Anion Gap 11.7 H Glucose 108 H Alkaline Phosphatase 195 H Albumin 2.6 L Ultrasound OB Ultrasound for presentation. Indication: Check position Presentation: Vertex. Exam complete.
[2024-03-05] MEDS: Lactated Ringers 1,000 ML 200 ML IV (19:22)
[2024-03-05] MEDS: ceFAZolin 2 GM/50 ML BAG 360 GM (19:27)
[2024-03-05] MEDS: Azithromycin 500 MG VIAL (19:42)
[2024-03-05] MEDS: FentaNYL/ROPIvacaine 2 mcg/ml and 0.1% 200 ML CADD Cassette EP (19:50)
[2024-03-05] MEDS: Bupivacaine 0.25% Pres-Free 30 ML VIAL (19:51)
--- NOTE | 2024-03-05 20:35 | DI.RAD_ITS ---
Exam(s) XR ABDOMEN FLAT PLATE EXAM: 2D digital imaging was performed. CLINICAL HISTORY: EMERGENCY C SECTION; RULE OUT RSI. COMPARISON: No exams were available for comparison TECHNIQUE: Supine views of the abdomen was performed. Two images were obtained. FINDINGS: BOWEL GAS PATTERN: There is a moderate amount of stool in the colon. FREE AIR: None. CALCIFICATIONS: No radiopaque calcifications. OSSEOUS STRUCTURES: Normal for age. There is diastasis of the symphysis pubis and mild bilateral wide ben of the sacroiliac joints. OTHER FINDINGS: There are 2 linear metallic densities in the right lower quadrant of the abdomen. On e lies lateral to the L4 vertebral body on the right. The 2nd lies over the right iliac crest. Ther e is a tiny 2 mm density on the right projected in the mid abdomen of uncertain if any, clinical sign ificance. It is projected over the renal shadow and may represent a renal calculus. IMPRESSION: There are 2 metallic linear densities in the right abdomen which appear to represent surgical clips. No other radiopaque foreign body is seen. DATA REPOSITORY: RADIATION DOSE DELIVERED:
--- NOTE | 2024-03-05 20:58 | DI.VRAD_ITS ---
PROCEDURE INFORMATION: Exam: XR Abdomen Exam date and time: 03/05/2024 8:22 PM Age: 28 years old Clinical indication: Other: Rule out rsi; Prior surgery; Surgery date: Post-operative (0-2 days); Surgery type: Emergency c section, images taken in the or TECHNIQUE: Imaging protocol: Radiologic exam of the abdomen. Views: Frontal supine view of the abdomen. 1 View. COMPARISON: No relevant prior studies available. FINDINGS: Gastrointestinal tract: Significant fecal retention throughout the colon. No abnormally dilated bowel loops. Intraperitoneal space: 2 small linear metallic densities in the right lower quadrant appear to represent surgical clips. Bones/joints: Moderate diastasis of the pubic symphysis and bilateral sacroiliac joints noted. IMPRESSION: 1. Right lower quadrant densities appear to represent surgical clips. No other radiodense foreign body evident. 2. Age-indeterminate moderate diastasis of the pubic symphysis and sacroiliac joints. No acute fracture. 3. Colonic constipation. Dictated and Authenticated by: Kalyan Hutchison MD. Ordering:RAFAEL Nance MD
--- NOTE | 2024-03-05 21:55 | W.PM.OBCSECT ---
Date of service: 03/05/24 Time of Service: 21:55 Operative Note Operative Note Delivery Method: Unscheduled STAT: Yes and Primary [id number] Weeks: No DATE OF PROCEDURE: 03/05/24 PRE-OP DIAGNOSES: Term labor induction, cord prolapse POST-OP DIAGNOSES: same PROCEDURE: Emergency low transverse section Assisting Surgeon: Beth Marquez Anesthesia: GETA and local Estimated blood loss (mL): 600 Pathology: other (Placenta) Patient was transported to: PACU Patient's condition: stable Indications: Cord prolapse Findings: Prolapsed umbilical cord, body cord, nuchal cord. Delivery of viable male . Procedure Description: On the center, patient had received an epidural for pain control during labor. Prior to epidural placement, she was having repetitive variable decelerations with a cervix that was 5 cm dilated, 50% effaced, with a very large bulging bag of water. vertex was well applied to the cervix. Patient received an epidural for pain control and subsequent to this with examination had rupture of membranes. At the time of rupture there was noted to be multiple loops of pulsatile cord present. This was accompanied by a large gush of clear fluid. With confirmation of pulsatile cord, patient was turned to knee-chest position, OB team, and anesthesia who was still present in the room were all notified of the emergent situation. Patient was turned [id number]. Baby's head was elevated off the cord which remained pulsatile in transport from the labor room, to the operating suite. Additional help was called for, stunt man was notified. OR crew had previously been notified to remain in-house due to the variable decelerations and the heart rate prior to epidural. During transportation to the OR, both the patient and her were updated as to the progress, and the procedure. She was taken the operating suite with an IV running. At the time of arrival to the OR, she was transferred to the surgical bed. My hand was then removed so that I could gown and glove. Valdes catheter was inserted by nursing staff. Betadine was placed on the abdomen and sterile drape was placed. At this point endotracheal intubation was performed by anesthesia for the administration of general anesthesia. Once the patient was anesthetized, low transverse skin incision was made with a scalpel and carried down to the fascia with the same scalpel the fascia was nicked and fascial incision extended laterally. The rectus muscles were identified split in the midline and the peritoneum entered. At this point with the same scalpel a low transverse uterine incision was made and extended bluntly laterally. Due to size of the vertex, and difficulty in position it took approximately 2 minutes for extraction of the vertex through the incision. There was evidence of nuchal cord, body cord and the leg cord. The shoulders delivered through the incision and body followed with ease. Three-vessel cord was noted clamped x 2 and cut and the infant was handed off to the waiting nursing team. At this point cord blood gases and cord blood sample were obtained and the placenta delivered by manual expression. The uterus was then exteriorized and cleared of all clot and debris. Uterine incision was closed in 2 layers using 0 Monocryl suture. First layer was running locked, second layer was imbricating. The uterus was then returned to the abdomen and the uterine incision expected inspected and noted to be hemostatic. Ovaries and tubes are normal bilaterally. There is no evidence of intra-abdominal or pelvic trauma during the emergent nature of the section. Abdomen was irrigated with copious amounts of normal saline and the uterine incision again reinspected and noted to be hemostatic. The fascial incision was then closed using 0 Vicryl suture in a running fashion. Subcutaneous tissue irrigated with copious amounts of normal saline and reapproximated with 3-0 Vicryl suture. 4-0 undyed Monocryl was used to close the skin incision and Steri-Strips and a sterile dressing was placed. Patient did receive 2 g of Ancef and 500 mg of Zithromax intraoperatively. She had previously received multiple doses of penicillin G for group B strep prophylaxis. Patient did have a postoperative x-ray in light of the fact that counts were not performed prior to the procedure. No evidence of foreign body retained was noted on the x-ray. With this, patient was awoken from anesthesia and taken to the postanesthesia care unit in stable condition with a Valdes catheter draining clear yellow urine. Timing for the emergency section, decision for emergent made at 1914. Patient arrived in the OR at 1921. General anesthesia administered at 1926. Uterine incision at 1928, delivery of baby at 1931. Decision to incision time 17 minutes. EBL: 600 mL Complications: No noted intraoperative complications Fluids: Crystalloid per anesthesia Findings: Delivery of a viable male infant. Pathology: Placenta for examination. Infant Gender: Male weight: 9 lb 9 oz
--- NOTE | 2024-03-05 22:07 | PGE_ITS ---
Date of service: 03/05/24 Time of Service: 22:07 Objective Temp Pulse Resp BP Pulse Ox 97.7 F 93 H 16 130/85 99 03/05/24 20:50 03/05/24 20:50 03/05/24 20:50 03/05/24 20:50 03/05/24 20:50 Laboratory Results WBC 13.47 10^3/uL (4.4-10.8) H 03/04/24 21:15 RBC 4.10 10^6/uL (3.93-5.22) 03/04/24 21:15 Hgb 13.7 g/dL (11.2-15.7) 03/04/24 21:15 Hct 39.4 % (36.0-46.0) 03/04/24 21:15 MCV 96 fL (80-95) H 03/04/24 21:15 MCH 33.4 pg (27.0-33.0) H 03/04/24 21:15 MCHC 34.8 % (32.0-36.0) 03/04/24 21:15 RDW 13.4 % (11.7-14.6) 03/04/24 21:15 Plt Count 206 10^3/uL (130-400) 03/04/24 21:15 MPV 10.6 fL (8.0-11.0) 03/04/24 21:15 Sodium 140 mmol/L (136-145) 03/04/24 21:15 Potassium 3.5 mmol/L (3.5-5.1) 03/04/24 21:15 Chloride 105 mmol/L (98-107) 03/04/24 21:15 Carbon Dioxide 23.3 mmol/L (21.0-32.0) 03/04/24 21:15 Anion Gap 11.7 mmol/L (3-11) H 03/04/24 21:15 BUN 10 mg/dL (7-18) 03/04/24 21:15 Creatinine 0.6 mg/dL (0.55-1.02) 03/04/24 21:15 Est GFR (CKD-EPI 2020) 126.09 (mL/min/1.73m2) 03/04/24 21:15 Glucose 108 mg/dL (74-106) H 03/04/24 21:15 Calcium 8.8 mg/dL (8.5-10.1) 03/04/24 21:15 Total Bilirubin 0.4 mg/dL (0.2-1.0) 03/04/24 21:15 AST 17 U/L (15-37) 03/04/24 21:15 ALT 15 U/L (14-59) 03/04/24 21:15 Alkaline Phosphatase 195 U/L (46-116) H 03/04/24 21:15 Total Protein 6.8 g/dL (6.4-8.2) 03/04/24 21:15 Albumin 2.6 g/dL (3.4-5.0) L 03/04/24 21:15 Patient ABO/Rh A Negative 03/04/24: Antibody Screen POSITIVE 03/04/24: Antibody Identification Anti-D 03/04/24:15 Subjective Interval history since last seen: This is a late entry note after emergent section. Prior to delivery, patient was 5 cm dilated and having painful regular contractions. Dur ing this time, she was noted to have repetitive variable decelerations. Interventions were performed including discontinuation of Pitocin, IV fluid bolus, position change, cervical examination. Cervix was noted to be well applied to the cervix, however a very large bulging forebag was noted and my suspicion was that there may be an occult versus total cord prolapse. Anesthesia was noted for epidural placement for pain control. OR crew had been in-house for another procedure and was encouraged to stay until we had definitive diagnosis, and progress of labor with reassuring maternal paternal status. Patient received her epidural and anesthesia remained in the room for artificial rupture of membranes. At the time of rupture of membranes significant cord prolapse was noted. Emergent section was called and performed in an appropriate time fashion. Please see surgical operative note for remainder of the procedure. Results Hemoglobin/Hematocrit: Hgb 13.7 g/dL (11.2-15.7) 03/04/24:15 Hct 39.4 % (36.0-46.0) 03/04/24 21:15 Abnormal Lab Findings: Abnormal Labs 03/04/24: WBC 13.47 H MCV 96 H MCH 33.4 H Anion Gap 11.7 H Glucose 108 H Alkaline Phosphatase 195 H Albumin 2.6 L
[2024-03-05] MEDS: Acetaminophen 325 MG TAB 650 MG PO (22:37)
[2024-03-06] MEDS: Ketorolac 30 MG/ML VIAL 15 MG IVP ×2 (01:47→12:15)
[2024-03-06 02:05] VITALS: BP 122/77; PULSE 71; RESP 18; TEMP 36.7
[2024-03-06 02:15] VITALS: RESP 18
[2024-03-06 06:48] LABS: Abs Immature Grans 0.06 10^3/uL (0.0-0.06); Absolute Basophil Count 0.03 10^3/uL (0.0-0.2); Absolute Monocyte Count 0.85 10^3/uL (0.1-0.8); Basophils % 0.2; Eosinophils % 0.1; HCT 33.8 % (36.0-46.0); HGB 11.8 g/dL (11.2-15.7); Immature Grans % 0.4; Lymphocytes % 6.2; MCH 33.4 pg (27.0-33.0); MCHC 34.9 % (32.0-36.0); MCV 96 fL (80-95); Monocytes % 5.5; Neutrophils % 87.6; Platelet Count 174 10^3/uL (130-400); RBC 3.53 10^6/uL (3.93-5.22); RDW 13.6 % (11.7-14.6); RDW-SD 47.2 fL; WBC 15.44 10^3/uL (4.4-10.8)
[2024-03-06 06:50] LABS: Absolute Eosinophil Count 0.02 10^3/uL (0.0-0.7); Absolute Lymphocyte Count 0.96 10^3/uL (1.2-3.4); Absolute Neutrophil Count 13.53 10^3/uL (1.2-6.7)
[2024-03-06 08:00] VITALS: BP 137/91; PULSE 86; RESP 16; TEMP 36.7; O2SAT 100
--- NOTE | 2024-03-06 10:31 | W.PM.OBPNV1 ---
Date of service: 03/06/24 Time of Service: 10:32 Assessment and Plan Assessment and plan (1) Umbilical cord prolapse in labor and delivery: Status: Acute (2) Status post primary low transverse section: Status: Acute Assessment and plan: Patient is postoperative day #1 status post emergent low-transverse section due to cord prolapse. She did have an epidural placed prior to, and general anesthesia for her procedure. She had postoperative pain control with her epidural which will be weaned off this morning. Valdes catheter will be discontinued, will continue accurate I's and O's. Increase ambulation. Oral pain medication. Advance diet. All questions answered. Subjective Subjective Interval history: Patient seen and examined, events of procedure reviewed again. All questions answered. Pain is under good control. Will wean from epidural. Anticipate increased ambulation today. Valdes catheter in place with yellow, but lightly blood-tinged urine. Suspect urethral irritation due to her Valdes catheter. Will discontinue Valdes catheter later today, and continue accurate I's and O's. Pain is well-controlled. Tolerating oral intake. Patient comments: No complaints and Pain well controlled [place] baby status: Doing well, Nursing well and Strong Bonding Observed [place] feeding status: Exclusively breast feeding Exam Physical Exam Vital signs: Temp Pulse Resp BP Pulse Ox 98.1 F 86 16 137/91 H 100 03/06/24 08:00 03/06/24 08:00 03/06/24 08:00 03/06/24 08:00 03/06/24 08:00 Vital Signs Reviewed: Yes Constitutional Constitutional: no acute distress HEENT Exam HEENT Exam: Normal Neck Exam Neck Exam: Normal Respiratory Exam Respiratory Exam: Normal Cardiovascular Exam Cardiovascular Exam: Normal Abdominal Exam Abdomen: Tender Comments: Incision dressed, dressing dry. Fundal Exam Fundus: Below Umbilicus and Firm Extremities Exam Extremity Exam: Normal and Edema (2+ bilateral); negative Calf Tenderness Skin Exam Skin Exam: Normal Neurological Exam Neurological Exam: Normal Psychiatric Exam Psychiatric Exam: Normal Results Hemoglobin/Hematocrit: Hgb 11.8 g/dL (11.2-15.7) 03/06/24 06:02 Hct 33.8 % (36.0-46.0) L 03/06/24 06:02 Abnormal Lab Findings: Abnormal Labs 03/04/24 03/06/24 21:15 06:02 WBC 13.47 H 15.44 H RBC 3.53 L Hct 33.8 L MCV 96 H 96 H MCH 33.4 H 33.4 H Absolute Neutrophils 13.53 H Absolute Lymphocytes 0.96 L Absolute Monocytes 0.85 H Anion Gap 11.7 H Glucose 108 H Alkaline Phosphatase 195 H Albumin 2.6 L
--- NOTE | 2024-03-06 11:09 | W.ANESNEU ---
Epidural/Spinal Catheter Date Performed: 03/05/24 Procedure Start: 18:39 Procedure Stop: 19:10 Requesting Provider: Lee Ann Vieira Procedure Location: Obstetrics Reason Performed: Labor Epidural Standard Monitors Applied: Blood Pressure, SpO2 and See EMR for corresponding vital signs Patient Position: Sitting Sedation Given (Indicate Dose Given): No Sedation given Patient Mental Status: Awake Sterility: Hand Hygiene, Surgical Cap, Surgical Mask, Sterile Gloves, Sterile Drape/Sheet and Chlorhexidine Procedure Location: L2-L3 Interspace Epidural Needle: Tuohy 18 Gauge Needle Length: 3.5 Inch Needle Approach: Midline Epidural Procedure: Skin Prepped, Sterile Drape Placed, 1% Lidocaine to skin and subcutaneous tissue with 25G needle, Tuohy Needle placed, PRIYANKA to Saline Used, Epidural Catheter Placed, Catheter Met Resistance, Tuohy and Catheter Removed, Negative Heme, Negative CSF Flow and Tuohy Needle Removed Catheter Placed?: Catheter Placed Test Dose (Indicate Dose Given): 3ml 1.5% Lidocaine with 1:200K Epinephrine Given and Negative Test Dose Loss of Resistance Depth (cm): 5 Catheter depth at skin (cm): 11 Dressing: Sorbaview Dressing Placed, Mastisol Used and Dressing reinforced with Tape Epidural Provider Bolus (Indicate Dose Given): Total bolus dose given in 3-5 ml divided doses and Total Ropivacaine 0.1% with Fentanyl 2mcg/ml Given from pump. (ml) Dose:: 10ml from pump Additives (Indicate Dose Given ): None Infusion Medication: Medication Infusion Began Medication Infusion: Ropivacaine 0.1% with Fentanyl 2mcg/ml Maintenance Infusion Rate (ml/hour): 10 PCEA Bolus Dose (ml): 5 Post Procedure Pain score (0-10): 0 Block Level: N/A Paresthesia: None Ultrasound: Not Used Number of Attempts (See previous attempts in note section): 1 Procedure Tolerated: No Complications and Patient tolerated well Procedure Outcome: Successful Procedure Comment:: Epidural working well and PCEA education provided. Performed By: Tam Jones
[2024-03-06 12:15] VITALS: BP 132/91; PULSE 83; RESP 18; TEMP 36.4; O2SAT 98
[2024-03-06] MEDS: Acetaminophen 325 MG TAB 650 MG PO (12:15)
[2024-03-06] MEDS: Normal Saline Flush 10 ML SYR IVP (12:15)
[2024-03-06] MEDS: Docusate Sodium 100 MG CAP PO (16:31)
[2024-03-06] MEDS: oxyCODONE 5 mg/Acetaminophen 325 mg TAB PO ×2 (16:32→20:34)
[2024-03-06 16:35] VITALS: BP 132/88; PULSE 78; RESP 18; TEMP 36.8; O2SAT 99
[2024-03-06 20:30] VITALS: BP 135/86; PULSE 75; RESP 17; TEMP 36.8; O2SAT 99
[2024-03-06] MEDS: Ibuprofen 600 MG TAB PO (20:34)
[2024-03-07] MEDS: oxyCODONE 5 mg/Acetaminophen 325 mg TAB PO ×2 (00:49→04:35)
[2024-03-07] MEDS: Ibuprofen 600 MG TAB PO ×3 (04:35→16:33)
[2024-03-07 08:28] VITALS: BP 114/85; PULSE 73; RESP 16; TEMP 36.4; O2SAT 100
--- NOTE | 2024-03-07 08:50 | W.PM.OBPNV1 ---
Date of service: 03/07/24 Time of Service: 08:51 Assessment and Plan Assessment and plan (1) Status post primary low transverse section: Status: Acute Assessment and plan: Postop day 2 status post emergent low-transverse section for cord prolapse. Doing well. Anticipate discharge home later today, or tomorrow depending on pain control. All questions answered. Circumcision for today. Breast-feeding without difficulty. Subjective Subjective Interval history: Patient seen and examined this morning. Doing well. Pain control issues are better. She would like to shower this morning. Will encourage ambulation. circumcision at patient's request. Breast-feeding without difficulty. Anticipate discharge home today Patient's Mood: Appropriate baby status: Doing well feeding status: Exclusively breast feeding Exam Physical Exam Vital signs: Temp Pulse Resp BP Pulse Ox 97.5 F L 73 16 114/85 100 03/07/24 08:28 03/07/24 08:28 03/07/24 08:28 03/07/24 08:28 03/07/24 08:28 Vital Signs Reviewed: Yes Constitutional Constitutional: no acute distress HEENT Exam HEENT Exam: Normal Neck Exam Neck Exam: Normal Respiratory Exam Respiratory Exam: Normal Cardiovascular Exam Cardiovascular Exam: Normal Abdominal Exam Abdomen: Tender Fundal Exam Fundus: Below Umbilicus and Firm Extremities Exam Extremity Exam: Normal and Edema (2+ bilateral); negative Calf Tenderness or Redness Neurological Exam Neurological Exam: Normal Psychiatric Exam Psychiatric Exam: Normal Results Hemoglobin/Hematocrit: Hgb 11.8 g/dL (11.2-15.7) 03/06/24 06:02 Hct 33.8 % (36.0-46.0) L 03/06/24 06:02 Abnormal Lab Findings: Abnormal Labs 03/04/24 03/06/24 21:15 06:02 WBC 13.47 H 15.44 H RBC 3.53 L Hct 33.8 L MCV 96 H 96 H MCH 33.4 H 33.4 H Absolute Neutrophils 13.53 H Absolute Lymphocytes 0.96 L Absolute Monocytes 0.85 H Anion Gap 11.7 H Glucose 108 H Alkaline Phosphatase 195 H Albumin 2.6 L
--- NOTE | 2024-03-07 09:02 | DSE_ITS ---
Date of service: 03/07/24 Time of Service: 09:02 DS: Diagnosis Discharge Diagnosis (1) Status post primary low transverse section: Status: Acute Asessment and Plan: Postop day 2 status post primary low-transverse section, emergency, for cord prolapse. Doing well. Ambulating, tolerating regular diet and oral pain medication with stable vital signs. Discharged home postoperative day #2. Follow-up in 1, 2, and 6 weeks. Discharge Plan Disposition Patient Disposition: Home Condition: Improving Discharge Details Reason For Visit: induction Admit Date/Time: 03/04/24 21:03 Admit Provider: Romy Montague Attending Provider: Romy Montague Primary Care Provider: Trina Amos Hospital Course Hospital Course: Patient was admitted to the hospital with early labor, and had augmentation due to being term, and latent labor. Patient received misoprostol for cervical ripening. She was offered to be discharged home, or continue augmentation. She opted to continue augmentation. She received Pitocin for augmentation of labor. At 5 cm, with the cervix dilated and head well applied and a bulging bag of water, consistent variable decelerations were noted in the heart rate tracing. Patient was uncomfortable with her contractions. With variable decelerations, Pitocin augmentation was discontinued and variables continued. Patient received epidural for pain control. OR crew was notified to stay in-house due to suspi cion of possible cord related issue or intolerance of labor. With artificial rupture of membranes there was a large loop of cord present distal to the vertex. In light of the cord prolapse, she underwent an emergent low- transverse section with the decision to incision time of less than 30 minutes. Both mom and baby had an uncomplicated postoperative and course. She was discharged home postoperative day #2 ambulating, tolerating regular diet well pain medication with stable vital signs, breast-feeding her male infant. She will be seen back in the office in 1, 2, and 6 weeks. All questions answered. Home Meds and New Rx's Prescriptions: New ibuprofen 800 mg tablet 800 mg PO Q8H PRNQty: 60 1RF oxycodone-acetaminophen [Percocet] 5-325 mg tablet 1 tab PO Q8H PRNQty: 10 0RF docusate sodium [Colace] 100 mg capsule 100 mg PO BID Qty: 30 0RF No Action prenat.vits,aftab,[id number]-hbtk-[id number] Tablet 1 tab PO DAILY Discharge Instructions Additional Instructions: [facility] 2, and 6 weeks. Stand Alone Forms: BC Instructions, BC Discharge Instruc Activity:: Pelvic rest, no heavy lif Equipment/Supplies:: No Equipment Needed Diet:: As Tolerated Discharge Orders Discharge Orders: Discharge Order (Routine); Ordered 03/07/24 Ordered By: Lee Ann Vieira OB:DS Summary Contraception Discussed Contraception Discussed: Yes Contraceptive Plan: Not planning to use, [place] Infant Gender-Baby A: Male weight: 9 lb 7.678 oz Status at Discharge Functional status at discharge: independent ambulation Overall status at discharge: patient is back to baseline Mental Status: mental status grossly normal Speech and Movement: speech and movement normal Mood: congruent mood Affect: normal affect Quality:SDOH Health Related Social Needs: No Data to Display Exam Physical Exam Vital signs: Temp Pulse Resp BP Pulse Ox 97.5 F L 73 16 114/85 100 03/07/24 08:28 03/07/24 08:28 03/07/24 08:28 03/07/24 08:28 03/07/24 08:28 Constitutional Comments: See physical exam from progress note dated 03/07/2024. PFSH All Active Problems (Updated 03/06/24 @ 10:34 by Lee Ann Vieira DO) Status post primary low transverse section (Acute) Emergent section due to cord prolapse. Male infant. Almas Reza 03/05/2024 Umbilical cord prolapse in labor and delivery (Acute) Rh negative status during (Acute) Medical History (Updated 03/06/24 @ 10:34 by Lee Ann Vieira DO) hydronephrosis during , antepartum mild b/l on lexie sono - repeat 28wk sono resolved Spontaneous vaginal delivery 06/02/2021. Jerry Frazier 09/08/22. Jerry Miller Surgical History (Updated 03/06/24 @ 10:34 by Lee Ann Vieira DO) S/P wisdom tooth extraction S/P appendectomy Family History Father Well adult Mother Well adult Maternal Grandfather Cancer lymphoma ? if hodgkins vs non-hodgkins. al Maternal Grandmother H/O abdominal hysterectomy H/O cardiac pacemaker Paternal Grandmother Hx of atomic spectroscopist use of blood thinners Palsy, Wilkinson's Pulmonary embolism Social History Smoking/Tobacco Use Status: Never Smoking risk assessment performed?: Yes Alcohol Intake: never Drug use: Never Substance use type: does not use Household members: spouse, children and other Details: H-Kalyan. D-Karin Housing: house Number of Children: 1 Do you feel safe at home: Yes Do you feel safe in your relationship?: Yes History History 4 Para 2 Hx # Term Pregnancies 2 Multiple births 0 Hx # Pregnancies 0 Ectopic pregnancies 0 AB induced 0 Hx Number of Living Children 2 AB spontaneous 1 Past Pregnancies Del. Date GA/Weeks # Preg Succ Route Wgt Sex Labor Lgth Anesth esia Location [facility] 05/03/20 10 No No 06/02/21 40 No vaginal 8 lb 0.926 oz Female 18 hours. [facility] 09/08/22 39 No Yes vaginal 8 lb 1.632 oz Female 11hrs aoc Delivery Date: 05/03/20 Last Updated by: Jazmine Vizcaino CNM SAB blighted ovum Delivery Date: 06/02/21 Last Updated by: Debora Mejia M.D. over midline episiotomy. Epidural. Karin. Delivery Date: 09/08/22 Last Updated by: MD Pat Wray' Apgars 8/9. DS: Data Vitals/I&O Vitals and I&O: Vital Signs Temperature 97.5 F L 03/07/24 08:28 Temperature 98.1 F 03/04/24 07:52 Temperature Source Oral 03/07/24 08:28 Pulse 73 03/07/24 08:28 Pulse 67 03/04/24 07:52 Pulse Rhythm Regular 03/07/24 08:28 Respiratory Rate 16 03/07/24 08:28 Respiratory Depth Normal 03/06/24 20:30 Blood Pressure 114/85 03/07/24 08:28 Blood Pressure 130/84 03/04/24 07:52 Blood Pressure Mean 94 03/07/24 08:28 Pulse Oximetry 100 03/07/24 08:28 Respiratory End-tidal CO2 35 03/05/24 20:50 Oxygen Delivery Method Room Air 03/05/24 20:50 Pain Level 2 03/07/24 08:28 Comment Patient was having a contraction at this time 03/04/24 15:03 Intake & Output 03/06/24 03/06/24 03/07/24 11:59 23:59 11:59 Output Total 650 / 2475 1825 / 2475 1000 / 1000 Balance -650 / -2475 -1825 / -2475 -1000 / -1000 Output: Urine 650 / 2475 1825 / 2475 1000 / 1000 Other: Urine Color Light Dyana Pale Baird
[2024-03-07] MEDS: Acetaminophen 325 MG TAB 650 MG PO ×2 (10:36→16:33)
[2024-03-07] MEDS: Docusate Sodium 100 MG CAP PO (10:36)
--- NOTE | 2024-03-07 11:23 | W.ANESPOSTOP ---
Postoperative Evaluation Date, Time and Location Date Performed: 03/07/24 Time Performed: 11:23 Patient Location: Obstetrics Vital Signs Most Recent Imported Vital Signs: Most Recent Vital Signs Temp Pulse Resp BP Pulse Ox 36.4 C L 73 16 114/85 100 03/07/24 08:28 03/07/24 08:28 03/07/24 08:28 03/07/24 08:28 03/07/24 08:28 Pain Score Most Recent Pain Score: Most Recent Pain Score Pain Level [Abdomen] 2 03/07/24 08:28 Pain Level 4 03/07/24 10:36 Assessment Mental Status: Awake (Alert & Oriented to Patient Baseline) Airway and Respiratory Function: Patent airway with normal (patient baseline) respiratory exam Cardiovascular Function: Hemodynamically Stable Hydration Status: Adequately Hydrated Nausea & Vomiting: No Nausea or Vomiting Pain: Pain is tolerable per patient Peripheral Nerve Block: Patient did not receive a nerve block
[2024-03-07 12:10] VITALS: BP 132/77; PULSE 87; RESP 15; TEMP 36.8; O2SAT 99
[2024-03-07 16:05] VITALS: BP 128/64; PULSE 84; RESP 16; TEMP 36.8; O2SAT 100
--- NOTE | 2024-03-08 17:29 | W.OBNST ---
Date of service: 03/04/24 Time of Service: 15:00 NST Evaluation Reason for NST Reasons for Nonstress Test: FALSE LABOR Reason for NST Other: ? SGA Gestational Age Gestational Age in Weeks and Days: 40 Weeks and 1Days Test and Monitor Explained Test/Monitor Explained: Test Explained Vital Signs Blood Pressure: 130/84 Pulse: 67 Temperature: 98.1 F NST Information Date on Monitor: 03/04/24 Time on Monitor: 02:50 Date off Monitor: 03/04/24 Time off Monitor: 04:50 Total Time on Monitor: 120 NST Interventions: None NST Evaluation Patient States Movement: Present FHR Baseline: 135 Variability: Absent Accelerations: 15x15 Decelerations: None NST Results: Reactive Note Ultrasound Done: N/A. NST Note Note: Vtx by bedside sono. NST Reviewed and Verified by: Romy Montague
[2024-03-08 17:30] VITALS: BP 130/84; PULSE 67; TEMP 36.7
== END 2024-03-07 16:50 | disposition home or self-care (01) | DRG 787 ==
PROVIDERS: Obstetrics & Gynecology; Admitting Provider Obstetrics & Gynecology; PCP Internal Medicine; Visit Provider Obstetrics & Gynecology
PROC: 10D00Z1 Extraction of Products of Conception, Low, Open Approach (ICD-10-PCS; CPT 59514; principal; 2024-03-05 19:00)
DX: O99.824 Streptococcus B carrier state complicating childbirth (principal); O36.0930 Maternal care for other rhesus isoimmunization, third trimester, not applicable or unspecified; Z37.0 Single live birth; O69.0XX0 Labor and delivery complicated by prolapse of cord, not applicable or unspecified; O76 Abnormality in fetal heart rate and rhythm complicating labor and delivery; Z3A.40 40 weeks gestation of pregnancy
CPT/HCPCS: 59514; 36415; 80053; 85027; 86850; 86900; 86901; 59025; 74018; 85025; 86870; 88307; J0330; J0456; J0665; J0690; J1100; J1885; J2405; J2540; J2704; J3490

== ENCOUNTER 2025-02-01 02:59 | Outpatient (CLI) | payer OTHER, SELFPAY ==
[2025-02-01 12:18] LABS: Abs Immature Grans 0.04 10^3/uL (0.0-0.06); Absolute Basophil Count 0.03 10^3/uL (0.0-0.2); Absolute Eosinophil Count 0.03 10^3/uL (0.0-0.7); Absolute Monocyte Count 0.67 10^3/uL (0.1-0.8); Absolute Neutrophil Count 8.64 10^3/uL (1.2-6.7); Basophils % 0.3 %; Eosinophils % 0.3 %; HCT 40.6 % (36.0-46.0); Immature Grans % 0.4 %; Lymphocytes % 15.1 %; MCH 31.4 pg (27.0-33.0); MCHC 34.5 % (32.0-36.0); MCV 91 fL (80-95); MPV 9.8 fL (8.0-11.0); Neutrophils % 77.9 %; Platelet Count 264 10^3/uL (130-400); RBC 4.46 10^6/uL (3.93-5.22); RDW 13.3 % (11.7-14.6); RDW-SD 44.2 fL; WBC 11.09 10^3/uL (4.4-10.8)
[2025-02-01 12:20] LABS: Absolute Lymphocyte Count 1.67 10^3/uL (1.2-3.4)
[2025-02-01 23:21] LABS: Hepatitis B Surface Ag Negative (Negative)
[2025-02-01 23:50] LABS: Hepatitis C Ab w Rflx HCV PCR Negative (Negative)
[2025-02-01 23:52] LABS: HIV-1/2 Ag & Ab Screen Negative (Negative)
[2025-02-02 10:38] LABS: Rubella IgG Ab (UVM) Positive (See Note)
[2025-02-02 10:42] LABS: Varicella IgG Antibody Positive (See Note)
[2025-02-03 13:23] LABS: Syphilis IgG w/Reflex Nonreactive (Nonreactive)
== END 2025-02-01 03:00 | disposition home or self-care (01) ==
PROVIDERS: PCP Internal Medicine; Visit Provider Advanced Practice Midwife
DX: Z34.91 Encounter for supervision of normal pregnancy, unspecified, first trimester (principal)
CPT/HCPCS: 36415; 86787; 86803; 86850; 86900; 86901; 87340; 87389; 83036; 85025; 86762; 86780

== ENCOUNTER 2025-02-01 12:03 | Outpatient (REF) | payer OTHER, SELFPAY ==
[2025-02-02 12:37] LABS: Chlamydia Result Negative (Negative); GC Result Negative (Negative)
== END 2025-02-01 12:04 | disposition home or self-care (01) ==
LOC: LBN 12:03
PROVIDERS: PCP Internal Medicine; Visit Provider Advanced Practice Midwife
DX: Z34.91 Encounter for supervision of normal pregnancy, unspecified, first trimester (principal); Z3A.12 12 weeks gestation of pregnancy
CPT/HCPCS: 87491; 87591; 87086

== ENCOUNTER 2025-05-24 04:14 | Outpatient (CLI) | payer OTHER, SELFPAY ==
[2025-05-24 09:11] LABS: HCT 37.1 % (36.0-46.0); HGB 13.0 g/dL (11.2-15.7); MCH 33.1 pg (27.0-33.0); MCHC 35.0 % (32.0-36.0); MCV 94 fL (80-95); MPV 9.9 fL (8.0-11.0); Platelet Count 231 10^3/uL (130-400); RBC 3.93 10^6/uL (3.93-5.22); RDW 13.4 % (11.7-14.6); RDW-SD 46.1 fL; WBC 10.59 10^3/uL (4.4-10.8)
[2025-05-24 09:34] LABS: Glucose,1 Hr (Glucola) 128 mg/dL (80-140)
== END 2025-05-24 04:15 | disposition home or self-care (01) ==
PROVIDERS: PCP Internal Medicine; Visit Provider Obstetrics & Gynecology
DX: O26.892 Other specified pregnancy related conditions, second trimester (principal); Z67.91 Unspecified blood type, Rh negative
CPT/HCPCS: 36415; 82950; 85027; 86850; 86900; 86901; 90384

== ENCOUNTER 2025-07-15 18:14 | Outpatient (REF) | payer OTHER, SELFPAY | END 2025-07-15 18:15 | disposition home or self-care (01) | LOC: LBN 18:14 | PROVIDERS: PCP Internal Medicine; Visit Provider Obstetrics & Gynecology | DX: Z3A.36 36 weeks gestation of pregnancy (principal); Z34.83 Encounter for supervision of other normal pregnancy, third trimester | CPT/HCPCS: 87081 ==